=== PATIENT | female | born 1980 | race Caucasian/White ===

== ENCOUNTER → 2018-07-07 17:31 | Outpatient (CLI) | payer BC, SELFPAY | PROVIDERS: Visit Provider Obstetrics & Gynecology | DX: R39.89 Other symptoms and signs involving the genitourinary system (principal); Z20.2 Contact with and (suspected) exposure to infections with a predominantly sexual mode of transmission | CPT/HCPCS: 87086; 87088; 87186 ==

== ENCOUNTER 2018-10-29 09:56 | Emergency (ER) | payer BC, SELFPAY ==
--- NOTE | 2018-10-29 10:08 | HMH.EDUTC ---
[facility] [place] Dis[place] Clinical Impression: Strep throat Disposition: Home, Self-Care Condition on Discharge: Good Instructions: Strep Throat, DI for Strep Throat, Azithromycin Additional Instructions: Drink plenty of fluids. Take tylenol or ibuprofen for pain or fever Take all the antibiotics as prescribed. Throw your toothbrush away and get a new one. Follow up with your regular doctor. GO TO THE ER FOR ANY WORSENING OR LIFE THREATENING SYMPTOMS Prescriptions: Azithromycin [Z-Zac 250mg Tab] 250 mg PO UD DOSE PK #6 tab Referrals: Ariel Langston MD [Primary Care Provider] - Forms: Work/School Release Time of Disposition: 10:21 Medical Decision Making - Medical Records Medical records reviewed: Yes: I reviewed the patient's medical records. - [place] Inquiry Pt receiving controlled substance: No [place] was queried for this patient: No Vital Signs: 10/29/18 10:09 10/29/18 10:21 Temperature 98.4 F 98.4 F Temperature Source Oral Oral Pulse Rate 86 Pulse Rate [Right Brachial] 86 Respiratory Rate 18 18 Blood Pressure 137/80 Blood Pressure [Right Arm] 137/80 Blood Pressure Mean [Right Arm] 99 Blood Pressure Source Automatic Cuff Blood Pressure Source [Right Arm] Automatic Cuff Blood Pressure Position Sitting Blood Pressure Position [Right Arm] Sitting 02 Sat by Pulse Oximetry 96 Oxygen Delivery Method Room Air Room Air - Lab Data Lab results reviewed: Yes: I reviewed the patient's lab results. Lab Results 10/29/18 10:12: Strep Scn Rapid Clinic Positive A [facility] [place] HPI - General Stated complaint: sore throat and ears hurt Time Seen by Provider: 10/29/18 10:05 - History of Present Illness Provider Complaint: She c/o 3 days of worsening sore throat. - Related Data Previous Rx's Medication Instructions Recorded Azithromycin [Z-Zac 250mg Tab] 250 mg PO UD DOSE PK #6 tab 10/29/18 Allergies Allergy/AdvReac Type Severity Reaction Status Date / Time acetaminophen [From PERCOCET] Allergy Mild Verified 07/07/18 10:50 amoxicillin [AMOXICILLIN] Allergy Mild Verified 07/07/18 10:50 aspirin [ASPIRIN] Allergy Mild Verified 07/07/18 10:50 hydrocodone [HYDROCODONE] Allergy Mild Verified 07/07/18 10:50 latex [LATEX] Allergy Mild Verified 07/07/18 10:50 meperidine [From DEMEROL] Allergy Mild Verified 07/07/18 10:50 oxycodone [From PERCOCET] Allergy Mild Verified 07/07/18 10:50 promethazine [From PHENERGAN] Allergy Mild Verified 07/07/18 10:50 tramadol [From ULTRAM] Allergy Mild Verified 07/07/18 10:50 [facility] History - Hepatitis A Screen Attestation statement:: This patient has been screened for Hepatitis A risk factors. 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 Reports as per HPI Physical Exam - General General appearance: alert, in no apparent distress - Head Head exam: atraumatic, normocephalic, normal inspection - Eye Eye exam: Present: normal appearance, PERRL, EOMI - ENT ENT exam: Present: mucous membranes moist, normal external ear exam - Expanded ENT Exam Mouth exam: Present: normal external inspection Teeth exam: Present: normal inspection Throat exam: Present: tonsillar erythema, tonsillomegaly, tonsillar exudate - Neck Neck exam: Present: normal inspection, full ROM, trachea midline. Absent: meningismu
[2018-10-29 10:09] VITALS: BP 137/80; PULSE 86; RESP 18; TEMP 36.9; O2SAT 96; BMI 42.7
--- NOTE | 2018-10-29 10:12 | ED_ITS ---
[facility] [place] Clinical Impression: Strep throat Disposition: Home, Self-Care Condition on Discharge: Good Instructions: Strep Throat, DI for Strep Throat, Azithromycin Additional Instructions: Drink plenty of fluids. Take tylenol or ibuprofen for pain or fever Take all the antibiotics as prescribed. Throw your toothbrush away and get a new one. Follow up with your regular doctor. GO TO THE ER FOR ANY WORSENING OR LIFE THREATENING SYMPTOMS Prescriptions: Azithromycin [Z-Zac 250mg Tab] 250 mg PO UD DOSE PK #6 tab Referrals: Ariel Langston MD [Primary Care Provider] - Forms: Work/School Release Time of Disposition: 10:21 Medical Decision Making - Medical Records Medical records reviewed: Yes: I reviewed the patient's medical records. - [place] Inquiry Pt receiving controlled substance: No [place] was queried for this patient: No Vital Signs: 10/29/18 10:09 10/29/18 10:21 Temperature 98.4 F 98.4 F Temperature Source Oral Oral Pulse Rate 86 Pulse Rate [Right Brachial] 86 Respiratory Rate 18 18 Blood Pressure 137/80 Blood Pressure [Right Arm] 137/80 Blood Pressure Mean [Right Arm] 99 Blood Pressure Source Automatic Cuff Blood Pressure Source [Right Arm] Automatic Cuff Blood Pressure Position Sitting Blood Pressure Position [Right Arm] Sitting 02 Sat by Pulse Oximetry 96 Oxygen Delivery Method Room Air Room Air - Lab Data Lab results reviewed: Yes: I reviewed the patient's lab results. Lab Results 10/29/18 10:12: Strep Scn Rapid Clinic Positive A [facility] [place] HPI - General Stated complaint: sore throat and ears hurt Time Seen by Provider: 10/29/18 10:05 - History of Present Illness Provider Complaint: She c/o 3 days of worsening sore throat. - Related Data Previous Rx's Medication Instructions Recorded Azithromycin [Z-Zac 250mg Tab] 250 mg PO UD DOSE PK #6 tab 10/29/18 Allergies Allergy/AdvReac Type Severity Reaction Status Date / Time acetaminophen [From PERCOCET] Allergy Mild Verified 07/07/18 10:50 amoxicillin [AMOXICILLIN] Allergy Mild Verified 07/07/18 10:50 aspirin [ASPIRIN] Allergy Mild Verified 07/07/18 10:50 hydrocodone [HYDROCODONE] Allergy Mild Verified 07/07/18 10:50 latex [LATEX] Allergy Mild Verified 07/07/18 10:50 meperidine [From DEMEROL] Allergy Mild Verified 07/07/18 10:50 oxycodone [From PERCOCET] Allergy Mild Verified 07/07/18 10:50 promethazine [From PHENERGAN] Allergy Mild Verified 07/07/18 10:50 tramadol [From ULTRAM] Allergy Mild Verified 07/07/18 10:50 [facility] History - Hepatitis A Screen Attestation statement:: This patient has been screened for Hepatitis A risk factors. I have reviewed the patient's past medical history: Yes Medical History: Reports:: Diabetes Mellitus Type 2 Denies:: Cancer, Diabetes Mellitus Type 1, Hypertension, MRSA Comment: Gestational diabetes Other Surgeries: Yes: Tubal Ligation Amputation: No Fractures: No - Social History Smoking Status: Current every day smoker Tobacco Type: cigarettes #Yrs smoked (if former smoker): 22 Alcohol Intake: never Substance Use Type: denies use
[2018-10-29 10:15] LABS: UTC Strep Screen (Rapid) Positive (Negative)
[2018-10-29 10:21] VITALS: BP 137/80; PULSE 86; RESP 18; TEMP 36.9; O2SAT 96
== END 2018-10-29 10:25 | disposition home or self-care (01) ==
LOC: ER 10:00 → UTC 10:02
PROVIDERS: Emergency Provider Nurse Practitioner Family; PCP Internal Medicine Adolescent Medicine
DX: J02.0 Streptococcal pharyngitis (principal)
CPT/HCPCS: 87880; 99201

== ENCOUNTER 2019-11-29 20:20 | Emergency (ER) | payer BC, SELFPAY ==
[2019-11-29 20:43] VITALS: BP 147/88; PULSE 100; RESP 16; O2SAT 99; BMI 43.3
[2019-11-29 21:02] VITALS: BP 147/88; PULSE 100; RESP 16; TEMP 36.9; O2SAT 99; BMI 43.6
--- NOTE | 2019-11-29 21:07 | HMH.EDUTC ---
[facility] [place]ression: Cellulitis of trunk Qualifiers: Site of cellulitis of trunk: chest wall Qualified Code(s): L03.313 - Cellulitis of chest wall Disposition: Home, Self-Care Condition on Discharge: Good Instructions: Cellulitis Additional Instructions: Apply warm wet compresses to the affected sites three or four times per day for 15 minutes as tolerated. Take the antibiotics as directed. Follow up with your regular doctor. Don't shave your underarms until this is well healed. Wait at least 1 to 2 months. GO TO THE ER FOR ANY WORSENING SYMPTOMS OR CONCERNS Prescriptions: Sulfamethoxazole/Trimethoprim [Bactrim DS tablet] 1 each PO BID 10 Days #20 tab Transmission Status: Pending to [facility] Mupirocin [Bactroban 2% Ointment 22gm tube] 1 applicatio TP TID 7 Days #1 tube Transmission Status: Pending to [facility] cephALEXin [Keflex 500mg Cap] 500 mg PO Q6H 10 Days #40 cap Transmission Status: Pending to [facility] Referrals: Ariel Langston MD [Primary Care Provider] - Forms: Work/School Release Time of Disposition: 21:11 Medical Decision Making - Medical Records Medical records reviewed: No: I reviewed the patient's medical records. - [place] Inquiry Pt receiving controlled substance: No Vital Signs: 11/29/19 20:43 11/29/19 21:02 Temperature 98.4 F Temperature Source Oral Pulse Rate [Right Brachial] 100 H 100 H Respiratory Rate 16 16 Blood Pressure [Right Arm] 147/88 H 147/88 H Blood Pressure Mean [Right Arm] 107 107 Blood Pressure Source [Right Arm] Automatic Cuff Automatic Cuff Blood Pressure Position [Right Arm] Sitting Sitting 02 Sat by Pulse Oximetry 99 99 Oxygen Delivery Method Room Air Room Air [facility] [place] - General Stated complaint: sore under left arm Time Seen by Provider: 11/29/19 21:07 Mode of Arrival: Ambulatory Source of Information: Patient Limitations: No Limitations Description of Symptoms (Recalled from Triage Doc. by RN): Patient reports a red knot that popped up under her left armpit today. Patient reprots her bra has rubbed and iritated it more. Patient had it looked at work and was advised to come have it evaluated. HEENT Symptoms (Recalled from RN notes): No Resp Symptoms (Recalled from RN notes): No Skin Symptoms (Recalled from RN notes): Yes MS Symptoms (Recalled from RN notes): No Functional Status (Recalled from RN notes): WNL - History of Present Illness Provider Complaint: She states that she has a swollen area under her left arm. She gets boils pretty frequently. She states that she did have a staph infection in the past. She denies any fever or chills. - Related Data Previous Rx's Medication Instructions Recorded Cefdinir [Omnicef 300mg Capsule] 300 mg PO BID #20 cap 08/06/19 Mupirocin [Bactroban 2% Ointment 1 applicatio TP TID 7 Days #1 tube 11/29/19 22gm tube] Sulfamethoxazole/Trimethoprim 1 each PO BID 10 Days #20 tab 11/29/19 [Bactrim DS tablet] cephALEXin [Keflex 500mg Cap] 500 mg PO Q6H 10 Days #40 cap 11/29/19 Allergies Allergy/AdvReac Type Severity Reaction Status Date / Time acetaminophen [From PERCOCET] Allergy Mild Verified 07/07/18 10:50 amoxicillin [AMOXICILLIN] Allergy Mild Verified 07/07/18 10:50 aspirin [ASPIRIN] Allergy Mild Verified 07/07/18 10:50 hydrocodone [HYDROCODONE] Allergy Mild Verified 07/07/18 10:50 latex [LATEX] Allergy Mild Verified 07/07/18 10:50 meperidine [From DEMEROL] Allergy Mild Verified 07/07/18 10:50 oxycodone [From PERCOCET] Allergy Mild Verified 07/07/18 10:50 promethazine [From PHENERGAN] Allergy Mild Verified 07/07/18 10:50 tramadol [From ULTRAM] Allergy Mild Verified 07/07/18 10:50 - Worker's Comp Is this a Worker's Comp case?: No H History - Hepatitis A Screen Drug use history?: No High risk sexual behaviors?: No History of sexually transmitted infection?: No 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
[2019-11-29 21:29] VITALS: BP 147/88; PULSE 100; RESP 16; TEMP 36.9; O2SAT 99
== END 2019-11-29 21:35 | disposition home or self-care (01) ==
LOC: ER 20:42 → UTC 20:42
PROVIDERS: Emergency Provider Nurse Practitioner Family; PCP Internal Medicine Adolescent Medicine
DX: L03.313 Cellulitis of chest wall (principal); E11.9 Type 2 diabetes mellitus without complications; F17.210 Nicotine dependence, cigarettes, uncomplicated; Z88.1 Allergy status to other antibiotic agents; Z88.5 Allergy status to narcotic agent
CPT/HCPCS: 96372; 99201

== ENCOUNTER 2019-12-15 17:04 | Emergency (ER) | payer BC, SELFPAY ==
[2019-12-15 17:20] VITALS: BP 155/93; PULSE 111; RESP 22; TEMP 36.9; O2SAT 100; BMI 43.9
[2019-12-15 17:30] LABS: UTC Strep Screen (Rapid) Negative (Negative)
--- NOTE | 2019-12-15 17:31 | XR_ITS ---
PROCEDURE: XR CHEST 2V CLINICAL HISTORY: COUGH COMPARISON: CXR CHEST(2 VIEWS-NOT PORTABLE) from 12/23/2012 CXR CHEST(2 VIEWS-NOT PORTABLE) from 04/01/2013 FINDINGS: The cardiomediastinal silhouette and pulmonary vascularity are within normal limits. The lungs are clear without infiltrates, suspicious nodules, or pleural effusions. No acute bony abnormalities. IMPRESSION: No acute findings. Dictated by: Meño Khan MD 12/15/2019 18:04 Electronically signed by Meño Khan MD in [place] 12/15/2019 18:04
[2019-12-15 17:41] VITALS: BP 155/93; PULSE 111; RESP 22; TEMP 36.9; O2SAT 100; BMI 44.1
--- NOTE | 2019-12-15 17:55 | HMH.EDUTC ---
[facility] [place] Dis[place] Clinical Impression: COVID-19 virus test result unknown Otitis media Qualifiers: Otitis media type: unspecified Laterality: left Qualified Code(s): H66.92 - Otitis media, unspecified, left ear Disposition: Home, Self-Care Condition on Discharge: Good Instructions: Sore Throat, Middle Ear Infection, Preventing the Spread of Coronavirus Discharge Instructions Additional Instructions: *Monitor Temp, Over the counter Motrin or Tylenol as directed/as needed Tylenol every 4 hours and Motrin every 6 hours (as long as your family doctor has told you that you can take it) for fever or pain. and straight to ER if unable to lower temp less than 101.0 after medication given *Warm salt water gargles may help to soothe the throat *Throat Lozenges *Warm fluids like tea with honey may help to soothe the throat *Sleep elevated *Humidifier/Vaporizer Make sure to go home and self quarantine like you was advised in the [facility] no work until negative test *Follow instructions that you was given for quarantine on handout take medication as prescribed Call back to [facility] on Thursday evening to see if your results are back Return if needed Straight to ER if any life threatening symptoms Your throat swab was sent for culture. Those results are typically sent to your primary care. Be sure to follow up in 2-3 days with your family doctor/primary care physician if no improvement so they can review those result and treat if necessary. If you don?t have a primary care doctor, I recommend you get one but in the mean time, you will have to return to a walk in clinic Follow up IMMEDIATELY for new or worsening symptoms or no Noticeable improvement over the next 48-72 hours. 911 for difficulty breathing or swallowing Prescriptions: Fluticasone Propionate [Flonase 50mcg nasal spray 16gm] 1 - 2 spr NS DAILY #1 bottle Transmission Status: Received by [facility] Azithromycin [Z-Zac 250mg Tab] 250 mg PO DIRECTED #6 tab Transmission Status: Received by [facility] Referrals: Ariel Langston MD [Primary Care Provider] - As needed Forms: Work/School Release Time of Disposition: 18:14 Medical Decision Making - [place] Inquiry Pt receiving controlled substance: No [place] was queried for this patient: No Vital Signs: 12/15/19 17:20 06/18/20 17:41 Temperature 98.4 F 98.4 F Temperature Source Oral Oral Pulse Rate [Right Brachial] 111 H 111 H Respiratory Rate 22 22 Blood Pressure [Right Arm] 155/93 H 155/93 H Blood Pressure Mean [Right Arm] 113 113 Blood Pressure Source [Right Arm] Automatic Cuff Automatic Cuff Blood Pressure Position [Right Arm] Sitting Sitting 02 Sat by Pulse Oximetry 100 100 Oxygen Delivery Method Room Air Room Air - Lab Data Lab results reviewed: Yes: I reviewed the patient's lab results. Lab Results 12/15/19 17:19: Strep Scn Rapid Clinic Negative Orders (Tests/Meds): ORDERS Category Date Time Status SARS-CoV-2, CARLOS Stat Lab 12/15/19 18:13 Received Strep Screen Confirmation Stat Micro 12/15/19 17:19 Received - Radiology Data #1 Image(s): Chest Image Reviewed: Yes I reviewed the patient's radiology image Preliminary Findings: Normal/NAD [facility] [place] HPI - General Stated complaint: fever,SOB,Sore throat,Wants to be Tested for COVID Time Seen by Provider: 12/15/19 17:56 Mode of Arrival: Ambulatory Source of Information: Patient Limitations: No Limitations Description of Symptoms (Recalled from Triage Doc. by RN): PATIENT C/O SUDDEN ONSET OF SHORTNESS OF AIR, SORE THROAT, FEVER, DRY COUGH, AND LEFT EAR ACHE SINCE 0200 TODAY. 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
[2019-12-15 18:38] VITALS: BP 155/93; PULSE 111; RESP 22; TEMP 36.9; O2SAT 100
[2019-12-17 15:02] LABS: Covid-19 Nasal PCR Sendout Lex Not Detected
== END 2019-12-15 18:41 | disposition home or self-care (01) ==
PROVIDERS: Emergency Provider Nurse Practitioner; PCP Internal Medicine Adolescent Medicine
DX: Z20.828 Contact with and (suspected) exposure to other viral communicable diseases (principal); H66.92 Otitis media, unspecified, left ear; E11.9 Type 2 diabetes mellitus without complications; F17.210 Nicotine dependence, cigarettes, uncomplicated
CPT/HCPCS: 71046; 87880; 99202; U0004

== ENCOUNTER 2020-03-01 13:43 | Emergency (ER) | payer BC, SELFPAY ==
--- NOTE | 2020-03-01 15:09 | HMH.EDUTC ---
[facility] [place] Clinical Impression: Viral syndrome Disposition: Home, Self-Care Condition on Discharge: Good Instructions: DI for Viral Syndrome, Preventing the Spread of Coronavirus Discharge Instructions Additional Instructions: Drink plenty of fluids. Take tylenol or ibuprofen for pain or fever. Take the medications as directed. Follow up with your regular doctor. GO TO THE ER FOR ANY WORSENING SYMPTOMS FOLLOW THE DIRECTIONS ON THE COVID-19 HAND OUT THAT WE GAVE YOU REGARDING SELF-ISOLATION UNTIL YOU KNOW YOUR COVID-19 RESULTS Prescriptions: Azithromycin [Z-Zac 250mg Tab*] 250 mg PO UD DOSE PK #6 tab Transmission Status: Received by [facility] Referrals: Ariel Langston MD [Primary Care Provider] - Forms: Work/School Release Time of Disposition: 15:37 Medical Decision Making - Medical Records Medical records reviewed: No: I reviewed the patient's medical records. - [place] Inquiry Pt receiving controlled substance: No Vital Signs: 03/01/20 15:24 03/01/20 15:51 Temperature 98.8 F 98.8 F Temperature Source Oral Pulse Rate 83 Pulse Rate [Right Brachial] 83 Respiratory Rate 14 14 Blood Pressure 139/91 H Blood Pressure [Right Arm] 139/91 H Blood Pressure Mean [Right Arm] 107 Blood Pressure Source [Right Arm] Automatic Cuff Blood Pressure Position [Right Arm] Sitting 02 Sat by Pulse Oximetry 97 Oxygen Delivery Method Room Air Orders (Tests/Meds): ORDERS Category Date Time Status Covid-19 Nasal PCR Sendout Cesar Routine Lab 03/01/20 14:56 Received [facility] [place] - General Stated complaint: fever soa cough Time Seen by Provider: 03/01/20 15:09 - History of Present Illness Provider Complaint: She c/o feeling bad, having a dry cough, body aches and low grade fever for the past 2 days. - Related Data Previous Rx's Medication Instructions Recorded Cefdinir [Omnicef 300mg Capsule] 300 mg PO BID #20 cap 08/06/19 Mupirocin [Bactroban 2% Ointment 1 applicatio TP TID 7 Days #1 tube 11/29/19 22gm tube] Sulfamethoxazole/Trimethoprim 1 each PO BID 10 Days #20 tab 11/29/19 [Bactrim DS tablet] cephALEXin [Keflex 500mg Cap] 500 mg PO Q6H 10 Days #40 cap 11/29/19 Azithromycin [Z-Zac 250mg Tab] 250 mg PO DIRECTED #6 tab 12/15/19 Fluticasone Propionate [Flonase 1 - 2 spr NS DAILY #1 bottle 12/15/19 50mcg nasal spray 16gm] Azithromycin [Z-Zac 250mg Tab*] 250 mg PO UD DOSE PK #6 tab 03/01/20 Allergies Allergy/AdvReac Type Severity Reaction Status Date / Time acetaminophen [From PERCOCET] Allergy Mild Verified 07/07/18 10:50 amoxicillin [AMOXICILLIN] Allergy Mild Verified 07/07/18 10:50 aspirin [ASPIRIN] Allergy Mild Verified 07/07/18 10:50 hydrocodone [HYDROCODONE] Allergy Mild Verified 07/07/18 10:50 latex [LATEX] Allergy Mild Verified 07/07/18 10:50 meperidine [From DEMEROL] Allergy Mild Verified 07/07/18 10:50 oxycodone [From PERCOCET] Allergy Mild Verified 07/07/18 10:50 promethazine [From PHENERGAN] Allergy Mild Verified 07/07/18 10:50 tramadol [From ULTRAM] Allergy Mild Verified 07/07/18 10:50 [facility] History - Hepatitis A Screen Attestation statement:: This patient has been screened for Hepatitis A risk factors. 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
[2020-03-01 15:24] VITALS: BP 139/91; PULSE 83; RESP 14; TEMP 37.1; O2SAT 97; BMI 51.2
[2020-03-01 15:51] VITALS: BP 139/91; PULSE 83; RESP 14; TEMP 37.1; O2SAT 97
[2020-03-03 14:49] LABS: Covid-19 Nasal PCR Sendout Lex Not Detected
== END 2020-03-01 15:52 | disposition home or self-care (01) ==
PROVIDERS: Emergency Provider Nurse Practitioner Family; PCP Internal Medicine Adolescent Medicine
DX: B34.9 Viral infection, unspecified (principal); Z03.818 Encounter for observation for suspected exposure to other biological agents ruled out; E11.9 Type 2 diabetes mellitus without complications; F17.210 Nicotine dependence, cigarettes, uncomplicated; Z88.1 Allergy status to other antibiotic agents; Z88.5 Allergy status to narcotic agent; Z91.040 Latex allergy status; Z79.899 Other long term (current) drug therapy
CPT/HCPCS: 99201; U0004

== ENCOUNTER 2020-04-21 11:08 | Emergency (ER) | payer BC, SELFPAY ==
[2020-04-21 11:40] VITALS: BP 118/79; PULSE 94; RESP 16; TEMP 36.8; O2SAT 97; BMI 40.2
--- NOTE | 2020-04-21 11:51 | HMH.EDUTC ---
[facility] [place] Disposition Clinical Impression: Exposure to COVID-19 virus Disposition: Home, Self-Care Condition on Discharge: Good Instructions: Preventing the Spread of Coronavirus Discharge Instructions Additional Instructions: Drink plenty of fluids. Take tylenol for pain or fever. Follow up with your regular doctor. GO TO THE ER FOR ANY WORSENING SYMPTOMS FOLLOW THE DIRECTIONS ON THE COVID-19 HAND OUT THAT WE GAVE YOU REGARDING SELF-ISOLATION UNTIL YOU KNOW YOUR COVID-19 RESULTS Referrals: Ariel Langston MD [Primary Care Provider] - Forms: Work/School Release Time of Disposition: 11:53 Medical Decision Making - Medical Records Medical records reviewed: No: I reviewed the patient's medical records. - [place] Inquiry Pt receiving controlled substance: No Vital Signs: 04/21/20 11:40 04/21/20 11:58 Temperature 98.2 F 98.2 F Temperature Source Oral Pulse Rate 94 H Pulse Rate [Right Brachial] 94 H Respiratory Rate 16 16 Blood Pressure 118/79 Blood Pressure [Right Arm] 118/79 Blood Pressure Mean [Right Arm] 92 Blood Pressure Source [Right Arm] Automatic Cuff Blood Pressure Position [Right Arm] Sitting 02 Sat by Pulse Oximetry 97 Oxygen Delivery Method Room Air Orders (Tests/Meds): ORDERS Category Date Time Status Covid-19 Nasal PCR ([facility]) Routine Lab 04/21/20 11:35 Received [facility] [place] HPI - General Stated complaint: covid test Time Seen by Provider: 04/21/20 11:51 - History of Present Illness Provider Complaint: She states that she was exposed to covid while at her child's high school 2 days ago. She has a cough and runny nose, but she has a history of allergies. She denies any fever/chills/shortness of breath/chest pain/body aches. - Related Data Previous Rx's Medication Instructions Recorded Cefdinir [Omnicef 300mg Capsule] 300 mg PO BID #20 cap 08/06/19 Mupirocin [Bactroban 2% Ointment 1 applicatio TP TID 7 Days #1 tube 11/29/19 22gm tube] Sulfamethoxazole/Trimethoprim 1 each PO BID 10 Days #20 tab 11/29/19 [Bactrim DS tablet] cephALEXin [Keflex 500mg Cap] 500 mg PO Q6H 10 Days #40 cap 11/29/19 Azithromycin [Z-Zac 250mg Tab] 250 mg PO DIRECTED #6 tab 12/15/19 Fluticasone Propionate [Flonase 1 - 2 spr NS DAILY #1 bottle 12/15/19 50mcg nasal spray 16gm] Azithromycin [Z-Zac 250mg Tab*] 250 mg PO UD DOSE PK #6 tab 03/01/20 Allergies Allergy/AdvReac Type Severity Reaction Status Date / Time acetaminophen [From PERCOCET] Allergy Mild Verified 07/07/18 10:50 amoxicillin [AMOXICILLIN] Allergy Mild Verified 07/07/18 10:50 aspirin [ASPIRIN] Allergy Mild Verified 07/07/18 10:50 hydrocodone [HYDROCODONE] Allergy Mild Verified 07/07/18 10:50 latex [LATEX] Allergy Mild Verified 07/07/18 10:50 meperidine [From DEMEROL] Allergy Mild Verified 07/07/18 10:50 oxycodone [From PERCOCET] Allergy Mild Verified 07/07/18 10:50 promethazine [From PHENERGAN] Allergy Mild Verified 07/07/18 10:50 tramadol [From ULTRAM] Allergy Mild Verified 07/07/18 10:50 [facility] History - Hepatitis A Screen Attestation statement:: This patient has been screened for Hepatitis A risk factors. 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
[2020-04-21 11:58] VITALS: BP 118/79; PULSE 94; RESP 16; TEMP 36.8; O2SAT 97
[2020-04-21 17:37] LABS: Adenovirus,PCR Not Detected (NotDetected); Bordetella Pertussis Not Detected (NotDetected); Chlamydophila Pneumoniae, PCR Not Detected (NotDetected); Coronavirus 19, PCR Not Detected (NotDetected); Coronavirus 229E Not Detected (NotDetected); Coronavirus NL63 Not Detected (NotDetected); Coronavirus OC43 Not Detected (NotDetected); Coronovirus HKU1,PCR Not Detected (NotDetected); Human Metapneumovirus Not Detected (NotDetected); Influenza A, PCR Not Detected (NotDetected); Influenza AH1, 2009 Not Detected (NotDetected); Influenza AH1, PCR Not Detected (NotDetected); Influenza AH3,PCR Not Detected (NotDetected); Influenza B, PCR Not Detected (NotDetected); Mycoplasma Pneumoniae, PCR Not Detected (NotDetected); Parainfluenza 1, PCR Not Detected (NotDetected); Parainfluenza 2, PCR Not Detected (NotDetected); Parainfluenza 3, PCR Not Detected (NotDetected); Parainfluenza 4, PCR Not Detected (NotDetected); Respiratory Syncytial Virus Not Detected (NotDetected); Rhinovirus/Enterovirus Not Detected (NotDetected)
== END 2020-04-21 12:00 | disposition home or self-care (01) ==
PROVIDERS: Emergency Provider Nurse Practitioner Family; PCP Internal Medicine Adolescent Medicine
DX: Z20.828 Contact with and (suspected) exposure to other viral communicable diseases (principal); F17.210 Nicotine dependence, cigarettes, uncomplicated; Z91.040 Latex allergy status; Z88.1 Allergy status to other antibiotic agents; Z88.5 Allergy status to narcotic agent
CPT/HCPCS: 87581; 87633; 87798; 99201; U0003

== ENCOUNTER 2020-05-01 20:20 | Emergency (ER) | payer BC, SELFPAY ==
[2020-05-01 20:23] VITALS: BP 164/90; PULSE 111; RESP 18; TEMP 37.1; O2SAT 97; BMI 38.4
--- NOTE | 2020-05-01 20:35 | XR_ITS ---
PROCEDURE: XR CHEST 2V CLINICAL HISTORY: Chest Pain High blood pressure COMPARISON: CR CXR CHEST(2 VIEWS-NOT PORTABLE) from 12/23/2012 CR CXR CHEST(2 VIEWS-NOT PORTABLE) from 04/01/2013 CR XR CHEST 2V from 12/15/2019 FINDINGS: The cardiomediastinal silhouette and pulmonary vascularity are within normal limits. The lungs are clear without infiltrates, suspicious nodules, or pleural effusions. No acute bony abnormalities. IMPRESSION: No acute findings. Dictated by: Meño Khan MD 05/02/2020 04:58 Meño Khan MD in [place] 05/02/2020 04:58
--- NOTE | 2020-05-01 20:35 | ECG_ITS ---
APPROVED REPORT Exam: Resting ECG HR:117 bpm ECG Measurements Heart Rate 117 AXES AR 166 P 67 QRSd 84 QRS -17 QT 322 T 44 QTc 449 Conclusion Sinus tachycardia Otherwise normal ECG Electronically signed by : Ariel Langston, 05/02/2020 15:18:59
--- NOTE | 2020-05-01 20:54 | HMH.EDCP ---
ED Disposition Clinical Impression: Atypical chest pain Disposition: Home, Self-Care Condition on Discharge: Good Instructions: DI for Atypical Chest Pain Additional Instructions: please see pcp or card in am Referrals: Prosper Barajas MD [Primary Care Provider] - - Critical Care Critical Care Time: No Attestation: On 05/01/20, the high probability of a clinically significant, sudden or life threatening deterioration of the following system(s) required my full and direct attention, intervention and personal management. The time I documented below is in addition to time spent performing reported procedures but includes the following listed in this critical care notation. Medical Decision Making - Medical Records Medical records reviewed: Yes: I reviewed the patient's medical records. - [place] Inquiry Pt receiving controlled substance: No Vital Signs: 05/01/20 20:23 Temperature 98.8 F Temperature Source Oral Pulse Rate [Right] 111 H Respiratory Rate 18 Blood Pressure [Right Arm] 164/90 H Blood Pressure Mean [Right Arm] 114 Blood Pressure Source [Right Arm] Automatic Cuff Blood Pressure Position [Right Arm] Sitting 02 Sat by Pulse Oximetry 97 Oxygen Delivery Method Room Air - Lab Data Lab results reviewed: Yes: I reviewed the patient's lab results. Lab Results 05/01/20 20:40: WBC 13.2 H, RBC 4.90, Hgb 14.0, Hct 41.5, MCV 84.6, MCH 28.5, MCHC 33.7, RDW 18.4 H, Plt Count 408, MPV 21.3 H, Neut % (Auto) 60.2, Lymph % (Auto) 33.4, [place] % (Auto) 4.8, Eos % (Auto) 1.7, Baso % (Auto) 2.1 H, Neut # (Auto) 7.9 H, Lymph # (Auto) 4.4, [place] # (Auto) 0.6, Eos # (Auto) 0.2, Baso # (Auto) 0.3 H, ESR 24 H 05/01/20 20:40: Sodium 138, Potassium 3.7, Chloride 102, Carbon Dioxide 27, Anion Gap 12.7, BUN 11, Creatinine 0.70, Estimated Creat Clear 164, Estimated GFR 94, Est GFR ( Amer) 113, Glucose 171 H, Calcium 9.4, Total Bilirubin 0.2, Direct Bilirubin 0.0, Conjugated Bilirubin 0.0, Indirect Bilirubin 0.2, Unconjugated Bilirubin 0.2, AST 28, ALT 30, Alkaline Phosphatase 69, Troponin I < 0.01, C-Reactive Protein 15.9 H, Total Protein 7.4, Albumin 4.4 Result diagrams: 05/01/20 20:40 05/01/20 20:40 Orders (Tests/Meds): ED MEDICATIONS Generic Name Dose Route Start Last Admin Trade Name Freq PRN Reason Stop Dose Admin Sodium Chloride 1,000 mls @ 999 mls/hr 05/01/20 20:45 05/01/20 20:42 Sod Chlor 0.9% 1000ml Bag IV 05/01/20 21:45 999 mls/hr .Q1H1M ROBERTO Administration Discontinued Medications Generic Name Dose Route Start Last Admin Trade Name Freq PRN Reason Stop Dose Admin Nitroglycerin 0.4 mg 05/01/20 20:35 05/01/20 20:42 Nitroglycerin 0.4mg Sl Tablet SL 05/01/20 20:36 1 tab ONCE ONE Administration ORDERS Category Date Time Status XR chest 2V Stat Exams 05/01/20 20:35 Taken Covid-19 IgG/IgM ([facility]) Stat Lab 05/01/20 22:14 Ordered Troponin I Q3H Lab 05/01/20 23:45 Ordered Troponin I Q3H Lab 05/02/20 02:45 Ordered - Radiology Data #1 Image(s): Chest Image Reviewed: Yes I reviewed the patient's radiology image Preliminary Findings: Normal/NAD - ECG Data Tracing #1 Arrhythmias present: sinus tach Ischemic changes: non-specific ST-T wave changes - Reevaluation(s) Time: 22:23 Reevaluation #1: declined admit Chest Pain HPI - General Chief Complaint: Chest Pain Stated Complaint: chest pain Time Seen by Provider: 05/01/20 20:35 Mode of Arrival: Ambulatory Source of Information: Patient, Medical Record Limitations: No Limitations Description of Symptoms (Recalled from ER Triage Doc. by RN): Pt states she has left chest pain and feels like she has been having some arrythmias - History of Present Illness HPI narrative: feeling faint with chest pain with increased hr- no syncope MD complaint: chest pain indicative of cardiac Onset (ago): hour(s) Duration: intermittent Activity at onset: during rest Pain location: left chest Severity: moder
[2020-05-01 20:56] LABS: Chloride 102 mmol/L (98-107); Potassium 3.7 mmoL/L (3.5-5.1); Sodium 138 mmol/L (136-145)
[2020-05-01 20:59] LABS: Alanine Aminotransferase 30 U/L (12-78); Albumin Level 4.4 g/dl (3.5-5.0); Alkaline Phosphatase 69 U/L (38-126); Anion Gap 12.7 mEq/L (5-15); Aspartate Amino Transferase 28 U/L (14-36); Bilirubin,Indirect 0.2 mg/dL (0.0-0.9); Bilirubin,Total 0.2 mg/dl (0.2-1.3); Bilirubin,Unconjugated 0.2 mg/dL (0.0-1.1); Blood Urea Nitrogen 11 mg/dl (7-17); Calcium 9.4 mg/dl (8.4-10.2); Carbon Dioxide 27 mmol/L (22.0-30.0); Creatinine Clearance Estimated 164 mL/min (50-200); Estimated Glomerular Filt Rate 94 ml/min (>60); GFR (African American) 113 ML/MIN (>60); Glucose 171 mg/dl (74-100); Total Protein,Serum 7.4 g/dl (6.3-8.2)
[2020-05-01 21:05] LABS: C-Reactive Protein 15.9 mg/L (0-4)
[2020-05-01 21:07] LABS: Basophils # 0.3 K/mm3 (0-0.2); Basophils % 2.1 % (0.1-2.0); Eosinophils # 0.2 K/mm3 (0.0-0.4); Eosinophils % 1.7 % (0.1-12.0); Hematocrit 41.5 % (37.0-47.0); Lymphocytes # 4.4 K/mm3 (0.7-4.5); Lymphocytes % 33.4 % (10-50); Mean Corpuscular HGB Conc 33.7 g/dL (31.8-35.4); Mean Corpuscular Hemoglobin 28.5 pg (27.0-31.2); Mean Corpuscular Volume 84.6 fl (81-99); Mean Platelet Volume 21.3 fl (7.4-10.4); Monocytes # 0.6 K/mm3 (0.1-1.0); Monocytes % 4.8 % (1.7-9.3); Neutrophils # 7.9 K/mm3 (1.8-7.8); Neutrophils % 60.2 % (37.0-80.0); Platelet Count 408 K/mm3 (142-424); Red Cell Distribution Width 18.4 % (11.5-17.5); White Blood Count 13.2 K/mm3 (4.8-10.8)
[2020-05-01 21:21] LABS: Troponin I < 0.01 ng/ml (0.00-0.034)
[2020-05-01 21:43] LABS: Erythrocyte Sedimentation Rate 24 mm/hr (0-20)
--- NOTE | 2020-05-01 22:22 | PC.NURSE ---
asked pt is she wanted to stay for observation. pt stated she didnt want to stay for admission because she had two young kids at home but she agreed to follow up with her PCP
[2020-05-01 22:37] VITALS: BP 129/77; PULSE 87; RESP 18; O2SAT 98
[2020-05-01 22:42] LABS: Coronavirus 19 IgG Antibody Negative (Negative); Coronavirus 19 IgM Antibody Negative (Negative)
[2020-05-01 22:51] VITALS: BP 129/77; PULSE 86; RESP 14; TEMP 37.1; O2SAT 98
[2020-05-01 23:10] LABS: T4 (Thyroxine) 9.1 ug/dl (5.53-11.0)
[2020-05-01 23:24] LABS: Thyroid Stimulating Hormone 0.66 uIU/mL (0.465-4.68)
[2020-05-03 13:52] LABS: Hemoglobin A1C 6.8 % (4.0-6.0)
== END 2020-05-01 22:54 | disposition home or self-care (01) ==
PROVIDERS: Emergency Provider Emergency Medicine; PCP Internal Medicine Adolescent Medicine
DX: R07.89 Other chest pain (principal); E11.9 Type 2 diabetes mellitus without complications; Z01.84 Encounter for antibody response examination; F17.210 Nicotine dependence, cigarettes, uncomplicated; Z88.5 Allergy status to narcotic agent
CPT/HCPCS: 71046; 80048; 80076; 83036; 84436; 84443; 84484; 85025; 85651; 86140; 86328; 93005; 96365; 99283

== ENCOUNTER → 2020-05-04 13:30 | Outpatient (CLI) | payer BC, SELFPAY ==
--- NOTE | 2020-05-04 | CA_ITS ---
APPROVED REPORT EXAM: Comprehensive 2D, Doppler, and color-flow Echocardiogram Professor Of Family Medicine: Carole Aldridge RT(R) Ht: 5 ft 2 in Wt: 230lbs BSA: 2.03 BP: 174/115 mmHg Indications: CP, Murmur, smoker, palpitations, fatigue, syncope, edema, DM, SOB, obesity, family history of HD, emphysema, SVT 2D Dimensions LVOT 2.00 cm (M/F) 1.5-2.5 M-Mode Dimensions RVDd 1.83 cm (0.9-2.6) LA Diam 3.09 cm (1.9-4.0) LVDd 4.61 cm (3.5-5.7) Ao Diam 2.67 cm (2.0-3.7) LVDs 3.51 cm (3.5-5.7) IVSd 1.26 cm (0.6-1.1) PWd 0.99 cm (0.6-1.1) EF (Teich) 47.60% FS 23.90% EDV (Teich) 97.80 mL ESV (Teich) 51.20 mL LV Diastology E Decel Time 150.00 (160-240 msec) E/A Ratio 1.3 MED E' 9.40 (< 7 cm/sec) E'/MED E' Ratio 11.94 (>14) LAT E' 12.10 (<10 cm/sec) E/LAT E' Ratio 9.27 (>14) Mitral Valve MV E Max Grey. 112.00 (40-130 cm/s) MV A Velocity 84.00 (40-130 cm/s) E/A Ratio 1.33 MV Decel. Time 150.00 (160-240 ms) MV PHT 44.00 ms Left Ventricle Left atrium is normal size, left ventricle is normal size, there is no concentric left ventricular hypertrophy, visually estimated ejection fraction 55% with no regional wall motion abnormality, diastolic parameters are within normal range. Right Ventricle Right atrium and right ventricle are normal size and contractility. Aortic Valve Aortic valve is grossly normal, there is no aortic stenosis or aortic insufficiency. Mitral Valve Mitral valve is grossly normal, there is mild mitral regurgitation. Tricuspid Valve Tricuspid valve is grossly normal, there is mild tricuspid regurgitation, tricuspid regurgitation jet velocity is inadequate for calculation of the right ventricular systolic pressure. Pulmonic Valve Pulmonic valve is poorly visualized. Great Vessels Aortic root is normal size. Pericardium No significant pericardial effusion noted. Conclusion 1. Normal left ventricular size, preserved left ventricular systolic function, visually estimated ejection fraction 55% with no regional wall motion abnormality, diastolic parameters are within normal range. 2. Mild mitral and tricuspid regurgitation. 3. No significant pericardial effusion noted. Electronically signed by : Delmar Galloway, 05/08/2020 05:00:07
== END ==
PROVIDERS: PCP Internal Medicine Adolescent Medicine; Visit Provider Internal Medicine Adolescent Medicine
DX: R07.9 Chest pain, unspecified (principal)
CPT/HCPCS: 93306

== ENCOUNTER 2020-08-17 11:45 | Emergency (ER) | payer BC, SELFPAY ==
[2020-08-17 11:45] VITALS: BP 158/115; PULSE 120; RESP 19; TEMP 36.8; O2SAT 98; BMI 42.0
--- NOTE | 2020-08-17 12:05 | PC.NURSE ---
PATIENT REQUESTING TO SPEAK TO SHIFT ENGINEER FOR A COMPLAINT. SHE STATES SHE OVERHEARD STAFF TALKING ABOUT HER WHILE WAITING TO BE TESTED. [place] NOTIFIED.
--- NOTE | 2020-08-17 12:10 | PC.NURSE ---
WHOLESALE ACCOUNT MANAGER Cuco PHIPPS RN AT [facility]
--- NOTE | 2020-08-17 12:12 | PC.NURSE ---
PER ASSOCIATE PROFESSOR OF FORESTRY PATIENT IS REQUESTING STAFF IN QUESTION TO NOT GO INTO HER ROOM. PATIENT WILL BE LEAVING WITHOUT BEING SEEN BY PROVIDER.
[2020-08-17 12:18] VITALS: BP 158/115; PULSE 120; RESP 19; TEMP 36.8; O2SAT 98
--- NOTE | 2020-08-17 12:21 | HMH.EDUTC ---
[facility] [place] Clinical Impression: Patient left after triage Disposition: Left Without Being Seen Condition on Discharge: Undetermined Referrals: Ariel Langston MD [Primary Care Provider] - Time of Disposition: 20:14 Medical Decision Making - [place] Inquiry Pt receiving controlled substance: No Vital Signs: 08/17/20 11:45 08/17/20 12:18 Temperature 98.2 F 98.2 F Temperature Source Oral Pulse Rate 120 H Pulse Rate [Right Brachial] 120 H Respiratory Rate 19 19 Blood Pressure 158/115 H Blood Pressure [Right Arm] 158/115 H Blood Pressure Mean [Right Arm] 129 Blood Pressure Source [Right Arm] Automatic Cuff Blood Pressure Position [Right Arm] Sitting 02 Sat by Pulse Oximetry 98 Oxygen Delivery Method Room Air - Lab Data Lab results reviewed: Yes: I reviewed the patient's lab results. Lab Results 08/17/20 11:57: Influenza Type A Ag Negative, Influenza Type B Ag Negative 08/17/20 11:57: Strep Scn Rapid Clinic Negative [facility] [place] - General Stated complaint: fever, soa, loss of taste and smel Time Seen by Provider: 08/17/20 12:21 Mode of Arrival: Ambulatory Source of Information: Patient Limitations: No Limitations Description of Symptoms (Recalled from Triage Doc. by RN): PATIENT C/O BODY ACHES, SOA, FEVER, AND NO TASTE/SMELL SINCE LAST NIGHT. STATES SHE HAS RECENTLY BEEN EXPOSED TO STREP HEENT Symptoms (Recalled from RN notes): Yes Resp Symptoms (Recalled from RN notes): Yes Skin Symptoms (Recalled from RN notes): No MS Symptoms (Recalled from RN notes): No Functional Status (Recalled from RN notes): WNL - History of Present Illness Provider Complaint: Patient left without being seen - Related Data Home Medications Medication Instructions Recorded Confirmed metoprolol tartrate 25 mg tablet 25 mg PO DAILY 05/07/20 Allergies Allergy/AdvReac Type Severity Reaction Status Date / Time acetaminophen [From PERCOCET] Allergy Mild Verified 05/07/20 09:07 amoxicillin [AMOXICILLIN] Allergy Mild Verified 05/07/20 09:07 aspirin [ASPIRIN] Allergy Mild Verified 05/07/20 09:07 hydrocodone [HYDROCODONE] Allergy Mild Verified 05/07/20 09:07 latex [LATEX] Allergy Mild Verified 05/07/20 09:07 meperidine [From DEMEROL] Allergy Mild Verified 05/07/20 09:07 oxycodone [From PERCOCET] Allergy Mild Verified 05/07/20 09:07 promethazine [From PHENERGAN] Allergy Mild Verified 05/07/20 09:07 tramadol [From ULTRAM] Allergy Mild Verified 05/07/20 09:07 - Worker's Comp Is this a Worker's Comp case?: No [facility] History - Hepatitis A Screen Drug use history?: No High risk sexual behaviors?: No History of sexually transmitted infection?: No 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er?: No Do you have indoor plumbing?: Yes Do you have electricity?: Yes Attestation statement:: This patient has been screened for Hepatitis A risk factors. I have reviewed the patient's past medical history: Yes Medical History: Reports:: Diabetes Mellitus Type 2 Denies:: Cancer, Diabetes Mellitus Type 1, Hypertension, Internal Pacemaker, MRSA Comment: Gestational diabetes Other Surgeries: Yes: Tubal Ligation. 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
[2020-08-17 20:04] LABS: UTC Strep Screen (Rapid) Negative (Negative)
[2020-08-17 20:05] LABS: UTC Influenza A Antigen Negative (Negative); UTC Influenza B Antigen Negative (Negative)
== END 2020-08-17 12:22 | disposition left against medical advice (07) ==
PROVIDERS: Emergency Provider Physician Assistant; PCP Internal Medicine Adolescent Medicine
DX: Z53.21 Procedure and treatment not carried out due to patient leaving prior to being seen by health care provider (principal); Z20.822 Contact with and (suspected) exposure to COVID-19
CPT/HCPCS: 87804; 87880; U0003

== ENCOUNTER 2020-12-03 18:03 | Emergency (ER) | payer SELFPAY ==
[2020-12-03 18:22] VITALS: BP 137/77; PULSE 86; RESP 19; TEMP 37; O2SAT 99; BMI 45.7
[2020-12-03 18:30] VITALS: BP 137/77; PULSE 86; RESP 19; TEMP 37
--- NOTE | 2020-12-03 18:53 | HMH.EDUTC ---
[facility] – [place] Disposition Clinical Impression: Exposure to COVID-19 virus Disposition: Home, Self-Care Condition on Discharge: Good Instructions: DI for COVID-19 (Suspected or Confirmed ), Coronavirus Disease 2019, Preventing the Spread of Coronavirus Discharge Instructions Additional Instructions: *Monitor Temp, Over the counter Motrin or Tylenol as directed/as needed Tylenol every 4 hours and Motrin every 6 hours (as long as your family doctor has told you that you can take it) for fever or pain. and straight to ER if unable to lower temp less than 101.0 after medication given Follow up IMMEDIATELY for new or worsening symptoms or no Noticeable improvement over the next 48-72 hours. 911 for difficulty breathing or swallowing You were tested for today for COVID19 your test result should be back in the next 24-48 hours, you may call to the [facility] to see if your test results are back in the next 48 hours [phone] [facility] hours are 9am-9pm You was given a handout with instructions for Self Quarantine and Self isolation for while you wait on test results and what to do if they are positive If you are positive the Health Dept will be contacting you also Referrals: Ariel Langston MD [Primary Care Provider] - As needed Time of Disposition: 18:58 Medical Decision Making - [place] Inquiry Pt receiving controlled substance: No [place] was queried for this patient: No Vital Signs: 12/03/20 18:22 12/03/20 18:30 Temperature 98.6 F 98.6 F Temperature Source Oral Pulse Rate 86 Pulse Rate [Right] 86 Respiratory Rate 19 19 Blood Pressure 137/77 Blood Pressure [Right Arm] 137/77 Blood Pressure Mean [Right Arm] 97 02 Sat by Pulse Oximetry 99 Orders (Tests/Meds): ORDERS Category Date Time Status Covid-19 Nasal PCR ([facility]) Routine Lab 12/03/20 18:12 Received [facility] [place] HPI - General Stated complaint: covid test Time Seen by Provider: 12/03/20 18:53 Mode of Arrival: Ambulatory Source of Information: Patient Limitations: No Limitations Description of Symptoms (Recalled from Triage Doc. by RN): pt needs covid test. she was exposed to covid today. HEENT Symptoms (Recalled from RN notes): No Resp Symptoms (Recalled from RN notes): No Skin Symptoms (Recalled from RN notes): No MS Symptoms (Recalled from RN notes): No Functional Status (Recalled from RN notes): na - History of Present Illness Provider Complaint: Patient states that she was exposed to COVID and today at work and her job told her to come and get tested for COVID denies any symptoms - Related Data Home Medications Medication Instructions Recorded Confirmed metoprolol tartrate 25 mg tablet 25 mg PO DAILY 05/07/20 Allergies Allergy/AdvReac Type Severity Reaction Status Date / Time acetaminophen [From PERCOCET] Allergy Mild Verified 12/03/20 18:25 amoxicillin [AMOXICILLIN] Allergy Mild Verified 12/03/20 18:25 aspirin [ASPIRIN] Allergy Mild Verified 12/03/20 18:25 hydrocodone [HYDROCODONE] Allergy Mild Verified 12/03/20 18:25 latex [LATEX] Allergy Mild Verified 12/03/20 18:25 meperidine [From DEMEROL] Allergy Mild Verified 12/03/20 18:25 oxycodone [From PERCOCET] Allergy Mild Verified 12/03/20 18:25 promethazine [From PHENERGAN] Allergy Mild Verified 12/03/20 18:25 tramadol [From ULTRAM] Allergy Mild Verified 12/03/20 18:25 - Worker's Comp Is this a Worker's Comp case?: No [facility] History - Hepatitis A Screen Drug use history?: No High risk sexual behaviors?: No History of sexually transmitted infection?: No 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er?: No Do you have indoor plumbing?: Yes Do you have electricity?: Yes Attestation statement:: This patient has been screened for Hepatitis A risk factors. I have reviewed the patient's past medical history: Yes Medical History: Reports:: Diabetes Mellitus Type 2 Denies:: Cancer, Diabetes Mellitus Type 1, Hypertension, Internal Pacemaker, MRSA Comment: Gestational diabetes Other Surger
== END 2020-12-03 19:02 | disposition home or self-care (01) ==
PROVIDERS: Emergency Provider Nurse Practitioner; PCP Internal Medicine Adolescent Medicine
DX: Z20.822 Contact with and (suspected) exposure to COVID-19 (principal); F17.210 Nicotine dependence, cigarettes, uncomplicated; Z91.040 Latex allergy status; Z88.1 Allergy status to other antibiotic agents; Z88.5 Allergy status to narcotic agent
CPT/HCPCS: 99202; G0463; U0003

== ENCOUNTER → 2021-03-21 13:08 | Outpatient (CLI) | payer OTHER, SELFPAY ==
[2021-03-21 13:31] LABS: Basophils # 0.2 K/mm3 (0-0.2); Basophils % 1.6 % (0.1-2.0); Eosinophils # 0.2 K/mm3 (0.0-0.4); Eosinophils % 1.7 % (0.1-12.0); Hematocrit 44.2 % (37.0-47.0); Hemoglobin 14.2 g/dL (12.2-16.2); Lymphocytes # 3.1 K/mm3 (0.7-4.5); Lymphocytes % 30.8 % (10-50); Mean Corpuscular HGB Conc 32.2 g/dL (31.8-35.4); Mean Corpuscular Hemoglobin 28.8 pg (27.0-31.2); Mean Corpuscular Volume 89.4 fl (81-99); Monocytes # 0.6 K/mm3 (0.1-1.0); Monocytes % 5.5 % (1.7-9.3); Neutrophils # 6.1 K/mm3 (1.8-7.8); Neutrophils % 60.3 % (37.0-80.0); Platelet Count 571 K/mm3 (142-424); Red Blood Count 4.95 M/mm3 (4.20-5.40); Red Cell Distribution Width 13.9 % (11.5-17.5); White Blood Count 10.1 K/mm3 (4.8-10.8)
[2021-03-21 13:52] LABS: Hemoglobin A1C 7.5 % (4.0-6.0)
[2021-03-21 14:21] LABS: Chloride 101 mmol/L (98-107); Potassium 4.8 mmoL/L (3.5-5.1); Sodium 140 mmol/L (136-145)
[2021-03-21 14:24] LABS: Alanine Aminotransferase 31 U/L (12-78); Albumin Level 4.4 g/dl (3.5-5.0); Albumin/Globulin Ratio 1.6 (1.1-1.8); Alkaline Phosphatase 80 U/L (38-126); Anion Gap 15.8 mEq/L (5-15); Aspartate Amino Transferase 29 U/L (14-36); Bilirubin,Total 0.2 mg/dl (0.2-1.3); Blood Urea Nitrogen 13 mg/dl (7-17); Carbon Dioxide 28 mmol/L (22.0-30.0); Cholesterol 174 mg/dl (140-200); Estimated Glomerular Filt Rate 93 ml/min (>60); GFR (African American) 113 ML/MIN (>60); Globulin 2.8 g/dL (1.3-3.2); Total Protein,Serum 7.2 g/dl (6.3-8.2); Triglycerides 357 mg/dl (30-150); VLDL Cholesterol 71 mg/dL (0-40)
[2021-03-21 14:25] LABS: Calcium 9.7 mg/dl (8.4-10.2); Chol/HDL Ratio 4.8 (1-3.5); Glucose 150 mg/dl (74-100); HDL Cholesterol 36 mg/dl (40-60)
[2021-03-21 14:35] LABS: Direct LDL Cholesterol 98.45 mg/dL (100-129)
[2021-03-21 14:44] LABS: HCG Qualitative, Serum Negative (Negative)
[2021-03-21 18:10] LABS: Glucose,Random 146 mg/dL (74-100)
[2021-03-23 09:19] LABS: Testosterone,Total 41 ng/dL (8-60)
== END ==
PROVIDERS: Visit Provider Internal Medicine Adolescent Medicine
DX: E11.9 Type 2 diabetes mellitus without complications (principal); N91.2 Amenorrhea, unspecified; Z84.2 Family history of other diseases of the genitourinary system
CPT/HCPCS: 36415; 80053; 80061; 82947; 83036; 84403; 84703; 85025; 87086

== ENCOUNTER → 2021-03-26 10:39 | Outpatient (CLI) | payer OTHER, SELFPAY ==
--- NOTE | 2021-03-26 10:41 | US_ITS ---
PROCEDURE: US TRANSVAGINAL CLINICAL INDICATION: AMENORRHEA COMPARISON: No exams were available for comparison FINDINGS: UTERUS: 8cm x 5cmx 4cm with a combined endometrial thickness of 8.6mm LEFT OVARY: [id number] with a volume of 8.8ml. There is a small left ovarian cyst at 18 mm with some low level internal echoes possibly due to a hemorrhagic cyst. RIGHT OVARY: [id number] with a volume of 17.5ml. 3 x 2 cm simple appearing left ovarian cyst. No cul-de-sac fluid IMPRESSION: Bilateral ovarian cyst 18 mm on the left which may represent a small hemorrhagic cyst and simple appearing right ovarian cyst at 3 cm. Dictated by: Meño Khan MD 03/26/2021 16:11 Meño Khan MD in OV 03/26/2021 16:11
== END ==
PROVIDERS: PCP Internal Medicine Adolescent Medicine; Visit Provider Internal Medicine Adolescent Medicine
DX: N91.2 Amenorrhea, unspecified (principal)
CPT/HCPCS: 76830

== ENCOUNTER → 2021-03-29 07:18 | Outpatient (CLI) | payer OTHER, SELFPAY ==
[2021-03-29 09:26] LABS: Free Thyroxine Index 2.7 ug/dL (5.93-13.13); T4 (Thyroxine) 8.7 ug/dl (5.53-11.0); Triiodothryronine (T3) Uptake 31 % (23.5-40.5)
[2021-03-29 09:40] LABS: Thyroid Stimulating Hormone 1.14 uIU/mL (0.465-4.68)
[2021-03-29 15:34] LABS: Chloride 101 mmol/L (98-107); Potassium 4.5 mmoL/L (3.5-5.1); Sodium 137 mmol/L (136-145)
[2021-03-29 15:37] LABS: Alanine Aminotransferase 27 U/L (12-78); Albumin Level 3.9 g/dl (3.5-5.0); Albumin/Globulin Ratio 1.4 (1.1-1.8); Alkaline Phosphatase 78 U/L (38-126); Anion Gap 12.5 mEq/L (5-15); Aspartate Amino Transferase 25 U/L (14-36); Bilirubin,Total 0.2 mg/dl (0.2-1.3); Blood Urea Nitrogen 8 mg/dl (7-17); Carbon Dioxide 28 mmol/L (22.0-30.0); Estimated Glomerular Filt Rate 137 ml/min (>60); GFR (African American) 166 ML/MIN (>60); Globulin 2.7 g/dL (1.3-3.2); Total Protein,Serum 6.6 g/dl (6.3-8.2)
[2021-03-29 15:38] LABS: Calcium 9.1 mg/dl (8.4-10.2); Glucose 185 mg/dl (74-100)
[2021-03-30 12:09] LABS: C-Peptide 5.8 ng/mL (1.1-4.4); Insulin Level Total 34.8 uIU/mL (2.6-24.9)
== END ==
PROVIDERS: Visit Provider Internal Medicine Adolescent Medicine
DX: R51.9 Headache, unspecified (principal); E16.2 Hypoglycemia, unspecified
CPT/HCPCS: 36415; 80053; 82533; 83525; 84436; 84443; 84479; 84681

== ENCOUNTER 2021-06-22 20:59 | Emergency (ER) | payer OTHER, SELFPAY ==
--- NOTE | 2021-06-22 23:00 | PC.NURSE ---
Called hotel front office manager to bring pt back to room 8, pt is waiting in car
[2021-06-22 23:45] VITALS: BP 00/00; PULSE 0; RESP 0; TEMP -17.7; TEMP 0
== END 2021-06-23 | disposition left against medical advice (07) ==
LOC: ER 23:51
PROVIDERS: Emergency Provider Emergency Medicine; PCP Internal Medicine Adolescent Medicine
DX: Z53.21 Procedure and treatment not carried out due to patient leaving prior to being seen by health care provider (principal)

== ENCOUNTER 2021-12-03 15:43 | Emergency (ER) | payer OTHER, SELFPAY ==
--- NOTE | 2021-12-03 15:43 | ECG_ITS ---
APPROVED REPORT Exam: Resting ECG HR:85 bpm ECG Measurements Heart Rate 85 AXES AR 162 P 53 QRSd 86 QRS -4 QT 359 T 0 QTc 401 Conclusion SINUS RHYTHM POSSIBLE RIGHT VENTRICULAR CONDUCTION DELAY [RSR (QR) IN V1/V2] MINIMAL ST DEPRESSION [0.025+ mV ST DEPRESSION] BORDERLINE ECG UNCONFIRMED REPORT Electronically signed by : Ariel Langston MD 12/03/2021 18:39:19
[2021-12-03 15:46] VITALS: BP 170/84; PULSE 85; RESP 16; TEMP 37; O2SAT 96; BMI 40.2
--- NOTE | 2021-12-03 15:53 | XR_ITS ---
FINAL REPORT CLINICAL HISTORY: cp COMPARISON: 05/01/2020 FINDINGS: SINGLE-VIEW CHEST The heart size is normal. The mediastinum is normal. The lungs are clear. There is no pneumothorax. IMPRESSION: No acute cardiopulmonary process. Reviewed, Interpreted and Dictated by Ish Damon III, MD Transcribed by Anel Nunez Authenticated and [facility]
--- NOTE | 2021-12-03 15:53 | HMH.EDCP ---
ED Disposition Clinical Impression: Nonspecific chest pain, Vertigo Disposition: Home, Self-Care Condition on Discharge: Good Instructions: DI for Atypical Chest Pain Additional Instructions: follow up cardiology, return for worse Prescriptions: Nitroglycerin [Nitrostat 0.4mg SL Tablet] 0.4 mg SL Q5MINP PRN #10 tab PRN Reason: Chest Pain Transmission Status: Pending to [id number] Referrals: Mohit Arrington MD [Staff Physician] - - Critical Care Critical Care Time: No Attestation: On , the high probability of a clinically significant, sudden or life threatening deterioration of the following system(s) required my full and direct attention, intervention and personal management. The time I documented below is in addition to time spent performing reported procedures but includes the following listed in this critical care notation. Medical Decision Making - Medical Records Medical records reviewed: Yes: I reviewed the patient's medical records. - [place] Inquiry Pt receiving controlled substance: No Vital Signs: 12/03/21 15:46 Temperature 98.6 F Temperature Source Oral Pulse Rate [Apical] 85 Respiratory Rate 16 Blood Pressure [Left Arm] 170/84 H Blood Pressure Mean [Left Arm] 112 Blood Pressure Source [Left Arm] Automatic Cuff Blood Pressure Position [Left Arm] Sitting 02 Sat by Pulse Oximetry 96 Oxygen Delivery Method Room Air - Lab Data Lab Results 12/03/21 15:55: WBC 9.9, RBC 4.51, Hgb 13.1, Hct 39.1, MCV 86.7, MCH 29.1, MCHC 33.6, RDW 14.1, Plt Count 497 H, MPV 7.4, Neut % (Auto) 60.3, Lymph % (Auto) 31.0, [place] % (Auto) 5.8, Eos % (Auto) 1.7, Baso % (Auto) 1.1, Neut # (Auto) 6.0, Lymph # (Auto) 3.1, [place] # (Auto) 0.6, Eos # (Auto) 0.2, Baso # (Auto) 0.1 12/03/21 15:55: Troponin I < 0.01 12/03/21 15:55: Sodium 137, Potassium 3.9, Chloride 102, Carbon Dioxide 29, Anion Gap 9.9, BUN 10, Creatinine 0.60, Estimated Creat Clear 198, Estimated GFR 111, Est GFR ( Amer) 135, Glucose 144 H, Calcium 9.2, Total Bilirubin 0.3, Direct Bilirubin 0.1, Conjugated Bilirubin 0.0, Indirect Bilirubin 0.2, Unconjugated Bilirubin 0.2, AST 30, ALT 27, Alkaline Phosphatase 66, Total Protein 7.0, Albumin 4.1 Result diagrams: 12/03/21 15:55 12/03/21 15:55 Orders (Tests/Meds): ED MEDICATIONS Discontinued Medications Generic Name Dose Route Start Last Admin Trade Name All PRN Reason Stop Dose Admin Aspirin 324 mg 12/03/21 15:55 12/03/21 15:58 Aspirin 81mg Chewable Tablet PO 12/03/21 15:56 324 mg ONCE ONE Administration Belladonna Alkaloids 60 ml 12/03/21 15:52 12/03/21 15:57 Gi Cocktail 60ml Udc PO 12/03/21 15:53 60 ml ONCE ONE Administration Meclizine HCl 50 mg 12/03/21 16:19 12/03/21 17:12 Meclizine 25mg Tablet PO 12/03/21 16:20 Not Given ONCE ONE ORDERS Category Date Time Status Troponin I Q3H Lab 12/03/21 19:00 Ordered Troponin I Q3H Lab 12/03/21 22:00 Ordered - ECG Data Tracing #1 I reviewed this ECG and interpreted as documented below: ekg by me nsr, poss rbbb, non spec st changes - Reevaluation(s) Time: 16:19 (cp resolved with gi cocktail, now with vertigo symptoms) Time reevaluation 3: 17:12 (reeval, symptoms resolved, asking to go home, advisd to stay for repeat trop and reason, r/b/a erxplained, still wishes to leave due to kids at home, agreed to f/u cardiology and return for worse) Chest Pain HPI - General Stated Complaint: CP Time Seen by Provider: 12/03/21 15:53 Limitations: No Limitations - History of Present Illness HPI narrative: low chest/epigastric pain 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
--- NOTE | 2021-12-03 16:17 | PC.NURSE ---
ER MD to BS at this time, pt family member came out of room stating pt reports blurry vision
[2021-12-03 16:19] LABS: Basophils # 0.1 K/mm3 (0-0.2); Basophils % 1.1 % (0.1-2.0); Eosinophils # 0.2 K/mm3 (0.0-0.4); Eosinophils % 1.7 % (0.1-12.0); Hematocrit 39.1 % (37.0-47.0); Hemoglobin 13.1 g/dL (12.2-16.2); Lymphocytes # 3.1 K/mm3 (0.7-4.5); Mean Corpuscular HGB Conc 33.6 g/dL (31.8-35.4); Mean Corpuscular Hemoglobin 29.1 pg (27.0-31.2); Mean Corpuscular Volume 86.7 fl (81-99); Mean Platelet Volume 7.4 fl (7.4-10.4); Monocytes # 0.6 K/mm3 (0.1-1.0); Monocytes % 5.8 % (1.7-9.3); Neutrophils % 60.3 % (37.0-80.0); Platelet Count 497 K/mm3 (142-424); Red Blood Count 4.51 M/mm3 (4.20-5.40); Red Cell Distribution Width 14.1 % (11.5-17.5); White Blood Count 9.9 K/mm3 (4.8-10.8)
[2021-12-03 16:20] LABS: Chloride 102 mmol/L (98-107)
[2021-12-03 16:21] LABS: Potassium 3.9 mmoL/L (3.5-5.1); Sodium 137 mmol/L (136-145)
[2021-12-03 16:23] LABS: Alanine Aminotransferase 27 U/L (12-78); Anion Gap 9.9 mEq/L (5-15); Aspartate Amino Transferase 30 U/L (14-36); Bilirubin,Direct 0.1 mg/dl (0.0-0.4); Bilirubin,Indirect 0.2 mg/dL (0.0-0.9); Bilirubin,Total 0.3 mg/dl (0.2-1.3); Bilirubin,Unconjugated 0.2 mg/dL (0.0-1.1); Blood Urea Nitrogen 10 mg/dl (7-17); Carbon Dioxide 29 mmol/L (22.0-30.0); Creatinine Clearance Estimated 198 mL/min (50-200); Estimated Glomerular Filt Rate 111 ml/min (>60); GFR (African American) 135 ML/MIN (>60)
[2021-12-03 16:24] LABS: Albumin Level 4.1 g/dl (3.5-5.0); Alkaline Phosphatase 66 U/L (38-126); Calcium 9.2 mg/dl (8.4-10.2); Glucose 144 mg/dl (74-100)
[2021-12-03 16:31] VITALS: BP 152/82; PULSE 80; RESP 18; O2SAT 91
[2021-12-03 16:38] LABS: Troponin I < 0.01 ng/ml (0.00-0.034)
[2021-12-03 17:01] VITALS: BP 105/43; PULSE 90; RESP 14; O2SAT 92
[2021-12-03 17:30] VITALS: BP 128/75; PULSE 87; RESP 15; TEMP 37; O2SAT 94
== END 2021-12-03 17:30 | disposition home or self-care (01) ==
PROVIDERS: Emergency Provider Emergency Medicine
DX: R07.9 Chest pain, unspecified (principal); R42 Dizziness and giddiness; E11.9 Type 2 diabetes mellitus without complications; Z79.84 Long term (current) use of oral hypoglycemic drugs; Z88.7 Allergy status to serum and vaccine; Z88.8 Allergy status to other drugs, medicaments and biological substances; Z88.6 Allergy status to analgesic agent; Z91.040 Latex allergy status; Z72.0 Tobacco use
CPT/HCPCS: 71045; 80048; 80076; 84484; 85025; 93005; 99284

== ENCOUNTER → 2021-12-25 08:18 | Outpatient (CLI) | payer OTHER, SELFPAY ==
--- NOTE | 2021-12-25 08:18 | MM_ITS ---
PROCEDURE INFORMATION: Exam: Bilateral Screening 3D Mammography Exam date and time: 12/25/2021 8:18 AM Age: 41 years old Clinical indication: Screening examination TECHNIQUE: Imaging protocol: Bilateral Screening tomosynthesis and 2D mammography including computer-aided detection (CAD) when performed. COMPARISON: No relevant prior studies available. Baseline FINDINGS: MAMMOGRAPHY: Breast composition: The breasts are almost entirely fatty. Mass: None. Architectural distortion: None. Calcifications: No suspicious calcifications. Asymmetric density: None. Skin thickening: None. Axillary adenopathy: None. IMPRESSION: No mammographic evidence of malignancy. Annual screening is recommended unless otherwise clinically indicated. ASSESSMENT: BI-RADS Category 1: Negative
== END ==
PROVIDERS: PCP Internal Medicine Adolescent Medicine; Visit Provider Nurse Practitioner Obstetrics & Gynecology
DX: Z12.31 Encounter for screening mammogram for malignant neoplasm of breast (principal)
CPT/HCPCS: 77063; 77067

== ENCOUNTER → 2022-01-11 09:17 | Outpatient (CLI) | payer OTHER, SELFPAY ==
[2022-01-11 09:39] LABS: Basophils # 0.2 K/mm3 (0-0.2); Basophils % 2.7 % (0.1-2.0); Eosinophils # 0.2 K/mm3 (0.0-0.4); Eosinophils % 1.9 % (0.1-12.0); Hematocrit 43.8 % (37.0-47.0); Hemoglobin 14.2 g/dL (12.2-16.2); Mean Corpuscular HGB Conc 32.3 g/dL (31.8-35.4); Mean Corpuscular Hemoglobin 28.9 pg (27.0-31.2); Mean Corpuscular Volume 89.4 fl (81-99); Mean Platelet Volume 7.5 fl (7.4-10.4); Monocytes # 0.5 K/mm3 (0.1-1.0); Monocytes % 5.2 % (1.7-9.3); Neutrophils # 4.8 K/mm3 (1.8-7.8); Neutrophils % 55.3 % (37.0-80.0); Platelet Count 460 K/mm3 (142-424); White Blood Count 8.6 K/mm3 (4.8-10.8)
[2022-01-11 10:01] LABS: Chloride 102 mmol/L (98-107); Sodium 136 mmol/L (136-145)
[2022-01-11 10:02] LABS: Potassium 4.1 mmoL/L (3.5-5.1)
[2022-01-11 10:04] LABS: Blood Urea Nitrogen 9 mg/dl (7-17); Estimated Glomerular Filt Rate 111 ml/min (>60); GFR (African American) 135 ML/MIN (>60)
[2022-01-11 10:05] LABS: Anion Gap 10.1 mEq/L (5-15); Carbon Dioxide 28 mmol/L (22.0-30.0)
[2022-01-11 10:11] LABS: Calcium 9.1 mg/dl (8.4-10.2); Glucose 158 mg/dl (74-100)
[2022-01-11 11:11] LABS: HCG Qualitative, Serum Negative (Negative)
== END ==
PROVIDERS: PCP Internal Medicine Adolescent Medicine; Visit Provider Nurse Practitioner Obstetrics & Gynecology
DX: Z01.818 Encounter for other preprocedural examination (principal); Z20.822 Contact with and (suspected) exposure to COVID-19
CPT/HCPCS: 36415; 80048; 84703; 85025; C9803; U0003; U0005

== ENCOUNTER 2022-01-13 06:54 | Day surgery (SDC) | payer OTHER, SELFPAY ==
[2022-01-10 12:04] VITALS: BMI 43.7
[2022-01-13] VITALS (9 sets, daily range): BP systolic 123–137; BP diastolic 64–90; PULSE 87–105; RESP 16–18; TEMP 36.3–38; O2SAT 92–98
--- NOTE | 2022-01-13 08:05 | P.PN_ITS ---
[facility] Anesthesia Checklist - Patient Identification Patient Identification: Arm Band - Structural Data Admitted From: Home Planned Operative Procedure/s: Endocervical Curretage and Cone Bx Consent for Planned Operative Procedure(s) Verified: Yes Verified Documents: Surgical Consent, History and Physical - NPO Status Verified Time NPO: 00:00 - Additional verifications Anesthesia Reactions: No Hx Blood Transfusions: No Blood Transfusion Reaction: No - Airway Assessment C-Spine Mobility Assessed: Yes (mp1) TMJ Mobility Assessed: Yes Dentition: Poor Dentition - Neurological Assessment Level of Consciousness: Awake, Alert - Anesthesia Plan Anesthesia Risk discussed: Yes Anesthesia Plan: Verified ASA Class: III Anesthesia Type: General [facility] History I have reviewed the patient's past medical history: Yes Medical History: Reports:: Chronic Obstructive Pulmonary Disease (COPD), Diabetes Mellitus Type 2 Denies:: Cancer, Diabetes Mellitus Type 1, Hypertension, Internal Pacemaker, MRSA, Seizures *Have you ever received a pneumonia vaccine?: No *Have you received a flu vaccine this season?: Yes Other Medical History: Denies: Blood Transfusion Reaction Anesthesia experience/problems:: nac Other Surgeries: Yes: Tubal Ligation. 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
--- NOTE | 2022-01-13 08:06 | HMH.ANESI ---
[facility] Anesthesia Record Part I Intake, IV Amount: 400 Estimated blood loss (mL): 25 Urine output (mL): 0 Blood Pressure: 136/76 SaO2: 92 Pulse Rate: 96 Respiratory Rate: 16 Temperature: 98.4 F Patient is:: Drowsy, Stable Stable to PACU at:: 08:00
--- NOTE | 2022-01-13 08:10 | HMH.OPNOTE ---
Date of procedure: 01/13/22 Pre-op Diagnosis:: High-grade squamous intraepithelial lesion Post-op Diagnosis:: High-grade squamous intraepithelial lesion Procedure performed:: Cone biopsy and endocervical curettage Surgeon:: Gilberto Tanner MD [employer] OFFICER:: Clif Hoskins Anesthesia: LMA Estimated blood loss (mL): 25 Clinical Note:: She is a 41-year-old lady who had a Pap smear and biopsy that showed HGSIL. She elected to have a cone biopsy in the operating room rather than have a LEEP procedure in the office. The risks and benefits of surgery were discussed with the patient. Operative findings:: She had a normal-appearing cervix. There were some areas on the exocervix that did not take up Lugol's. Operative note:: She was taken to the operating room where LMA anesthesia was found be adequate. She is prepped draped normal sterile fashion in the lithotomy position. I injected 20 cc of 1% Xylocaine with epinephrine circumferentially about the cervix. The anterior lip of the cervix was grasped with a tenaculum. Then using an 11 blade I made a cylindrical incision around the cervix. It went to the depth of the blade of the scalpel. I then amputated this cylindrical shaped biopsy from the cervix. I then performed an endocervical curettage. Using cautery I then cauterized the exocervix completely circumferentially. I then injected 30 cc of 0.25% ropivacaine at the 3:00, 5:00, 7:00, and 9:00 positions of the cervix. Monsel solution was then applied to the cervical defect. She tolerated the procedure well and was taken to the recovery room in excellent condition. All sponge, instrument counts and needle counts were correct. Estimated blood loss was less than 25 cc. Condition: stable Disposition: PACU Specimens:: Cone biopsy, endocervical curettage Complications:: None
[2022-01-13 19:48] LABS: POC Glucose,Bedside 154 (70-110)
[2022-01-14 16:39] VITALS: BP 137/64; PULSE 98; TEMP 36.4
--- NOTE | 2022-01-14 16:39 | P.PN_ITS ---
[facility] Anesthesia Record Part II Discharge Time: 08:20 Destination: Surgical Day Care (OP Surgery) PACU nurse assessment reviewed?: Yes Patient Condition:: Good Anesthesia Complications:: None Swallowing reflex intact?: Yes Cyanosis?: No Blood Pressure: 137/64 Pulse Rate: 98 Temperature: 97.6 F Mental Status: Alert & Oriented Pain level:: 0 Nausea and/or vomitting:: None Intake, IV Amount: 0
== END 2022-01-13 08:53 | disposition home or self-care (01) ==
LOC: OR 06:56
PROVIDERS: PCP Internal Medicine Adolescent Medicine; Visit Provider Nurse Practitioner Obstetrics & Gynecology
PROC: 0UBC7ZZ Excision of Cervix, Via Natural or Artificial Opening (ICD-10-PCS; CPT 57520; principal; 2022-01-13 08:30)
DX: R87.613 High grade squamous intraepithelial lesion on cytologic smear of cervix (HGSIL) (principal); E11.9 Type 2 diabetes mellitus without complications; J44.9 Chronic obstructive pulmonary disease, unspecified; Z72.0 Tobacco use; Z79.899 Other long term (current) drug therapy
CPT/HCPCS: 57456; 57520; 82962; 96374; J2405

== ENCOUNTER → 2022-05-07 09:04 | Outpatient (CLI) | payer OTHER, SELFPAY ==
[2022-05-07 09:09] LABS: MANUAL DIFFERENTIAL MANUAL DIFFERENTIAL (MANUAL DIFF)
[2022-05-07 09:43] LABS: Basophils # 0.1 K/mm3 (0-0.2); Basophils % 1.2 % (0.1-2.0); Eosinophils # 0.2 K/mm3 (0.0-0.4); Eosinophils % 1.3 % (0.1-12.0); Hematocrit 42.6 % (37.0-47.0); Hemoglobin 13.7 g/dL (12.2-16.2); Lymphocytes # 2.9 K/mm3 (0.7-4.5); Lymphocytes % 26.9 % (10-50); Mean Corpuscular HGB Conc 32.1 g/dL (31.8-35.4); Mean Corpuscular Hemoglobin 28.2 pg (27.0-31.2); Mean Corpuscular Volume 87.9 fl (81-99); Monocytes # 0.5 K/mm3 (0.1-1.0); Monocytes % 4.5 % (1.7-9.3); Neutrophils # 7.2 K/mm3 (1.8-7.8); Neutrophils % 66.2 % (37.0-80.0); Platelet Count 546 K/mm3 (142-424); Red Blood Count 4.85 M/mm3 (4.20-5.40); Red Cell Distribution Width 13.7 % (11.5-17.5); White Blood Count 10.9 K/mm3 (4.8-10.8)
[2022-05-07 10:15] LABS: Eosinophils % 1 % (0-3); Lymphocytes % 26 % (10-50); Monocytes % 7 % (2-9); Neutrophils % 66 % (42-76); Total Cells Counted 100
[2022-05-07 10:16] LABS: Platelet Estimate Slight Increase; RBC Morphology Normal
[2022-05-07 10:27] LABS: Creatinine,Urine Random 70 mg/dL (Not Estab.)
[2022-05-07 10:28] LABS: Alanine Aminotransferase 25 U/L (12-78); Albumin Level 4.1 g/dl (3.5-5.0); Albumin/Globulin Ratio 1.5 (1.1-1.8); Alkaline Phosphatase 90 U/L (38-126); Anion Gap 13.5 mEq/L (5-15); Aspartate Amino Transferase 24 U/L (14-36); Bilirubin,Total 0.2 mg/dl (0.2-1.3); Blood Urea Nitrogen 9 mg/dl (7-17); Calcium 9.5 mg/dl (8.4-10.2); Carbon Dioxide 29 mmol/L (22.0-30.0); Chloride 100 mmol/L (98-107); Estimated Glomerular Filt Rate 111 ml/min (>60); GFR (African American) 134 ML/MIN (>60); Globulin 2.7 g/dL (1.3-3.2); Glucose 117 mg/dl (74-100); HDL Cholesterol 28 mg/dl (40-60); Potassium 4.5 mmoL/L (3.5-5.1); Sodium 138 mmol/L (136-145); Total Protein,Serum 6.8 g/dl (6.3-8.2)
[2022-05-07 10:33] LABS: Triglycerides 280 mg/dl (30-150); VLDL Cholesterol 56 mg/dL (0-40)
[2022-05-07 10:34] LABS: Chol/HDL Ratio 5.1 (1-3.5); Cholesterol 142 mg/dl (140-200)
[2022-05-07 10:39] LABS: Direct LDL Cholesterol 84.16 mg/dL (100-129)
[2022-05-07 10:58] LABS: Thyroid Stimulating Hormone 1.04 uIU/mL (0.465-4.68)
[2022-05-07 12:18] LABS: Hemoglobin A1C 6.4 % (4.0-6.0)
== END ==
PROVIDERS: PCP Family Medicine; Visit Provider Family Medicine
DX: E11.9 Type 2 diabetes mellitus without complications (principal); Z72.0 Tobacco use; Z79.84 Long term (current) use of oral hypoglycemic drugs
CPT/HCPCS: 36415; 80053; 80061; 82043; 82570; 83036; 84443; 85007; 85014; 85018; 85048; 85049

== ENCOUNTER → 2022-12-05 23:22 | Outpatient (CLI) | payer OTHER, SELFPAY ==
[2022-12-05 17:57] LABS: Basophils # 0.1 K/mm3 (0-0.2); Basophils % 0.9 % (0.1-2.0); Eosinophils # 0.1 K/mm3 (0.0-0.4); Eosinophils % 1.3 % (0.1-12.0); Hematocrit 42.5 % (37.0-47.0); Hemoglobin 13.6 g/dL (12.2-16.2); Lymphocytes # 2.7 K/mm3 (0.7-4.5); Lymphocytes % 29.2 % (10-50); Mean Corpuscular Hemoglobin 27.4 pg (27.0-31.2); Mean Corpuscular Volume 85.7 fl (81-99); Mean Platelet Volume 8.2 fl (7.4-10.4); Monocytes # 0.4 K/mm3 (0.1-1.0); Monocytes % 3.9 % (1.7-9.3); Neutrophils # 5.9 K/mm3 (1.8-7.8); Neutrophils % 64.6 % (37.0-80.0); Platelet Count 545 K/mm3 (142-424); Red Blood Count 4.96 M/mm3 (4.20-5.40); Red Cell Distribution Width 14.2 % (11.5-17.5); White Blood Count 9.2 K/mm3 (4.8-10.8)
[2022-12-05 18:03] LABS: Alanine Aminotransferase 32 U/L (12-78); Albumin Level 4.1 g/dl (3.5-5.0); Albumin/Globulin Ratio 1.4 (1.1-1.8); Alkaline Phosphatase 83 U/L (38-126); Anion Gap 14.5 mEq/L (5-15); Aspartate Amino Transferase 31 U/L (14-36); Bilirubin,Total 0.3 mg/dl (0.2-1.3); Blood Urea Nitrogen 8 mg/dl (7-17); Calcium 8.8 mg/dl (8.4-10.2); Carbon Dioxide 25 mmol/L (22.0-30.0); Chloride 102 mmol/L (98-107); Chol/HDL Ratio 5.1 (1-3.5); Cholesterol 149 mg/dl (140-200); Estimated Glomerular Filt Rate 137 ml/min (>60); GFR (African American) 165 ML/MIN (>60); Globulin 2.9 g/dL (1.3-3.2); Glucose 185 mg/dl (74-100); HDL Cholesterol 29 mg/dl (40-60); Potassium 4.5 mmoL/L (3.5-5.1); Sodium 137 mmol/L (136-145); Triglycerides 275 mg/dl (30-150); VLDL Cholesterol 55 mg/dL (0-40)
[2022-12-05 18:13] LABS: Direct LDL Cholesterol 90.51 mg/dL (100-129)
[2022-12-05 18:19] LABS: 25-OH Vitamin D, Total 21.8 ng/mL (30-100)
[2022-12-05 18:33] LABS: Hemoglobin A1C 7.5 % (4.0-6.0)
== END ==
PROVIDERS: PCP Student in an Organized Health Care Education/Training Program; Visit Provider Student in an Organized Health Care Education/Training Program
DX: E11.9 Type 2 diabetes mellitus without complications (principal); J02.9 Acute pharyngitis, unspecified; Z13.220 Encounter for screening for lipoid disorders; E55.9 Vitamin D deficiency, unspecified; Z79.899 Other long term (current) drug therapy
CPT/HCPCS: 80053; 80061; 82306; 83036; 85025

== ENCOUNTER → 2022-12-08 23:52 | Outpatient (CLI) | payer OTHER, SELFPAY ==
[2022-12-08 17:56] LABS: Adenovirus,PCR Not Detected (NotDetected); Bordetella Pertussis Not Detected (NotDetected); Chlamydophila Pneumoniae, PCR Not Detected (NotDetected); Coronavirus 19, PCR Not Detected (NotDetected); Coronavirus 229E Not Detected (NotDetected); Coronavirus NL63 Not Detected (NotDetected); Coronavirus OC43 Not Detected (NotDetected); Coronovirus HKU1,PCR Not Detected (NotDetected); Human Metapneumovirus Not Detected (NotDetected); Influenza A, PCR Not Detected (NotDetected); Influenza AH1, 2009 Not Detected (NotDetected); Influenza AH1, PCR Not Detected (NotDetected); Influenza AH3,PCR Not Detected (NotDetected); Influenza B, PCR Not Detected (NotDetected); Mycoplasma Pneumoniae, PCR Not Detected (NotDetected); Parainfluenza 1, PCR Not Detected (NotDetected); Parainfluenza 2, PCR Not Detected (NotDetected); Parainfluenza 3, PCR Not Detected (NotDetected); Parainfluenza 4, PCR Not Detected (NotDetected); Respiratory Syncytial Virus Not Detected (NotDetected); Rhinovirus/Enterovirus Not Detected (NotDetected)
== END ==
PROVIDERS: PCP Student in an Organized Health Care Education/Training Program; Visit Provider Student in an Organized Health Care Education/Training Program
DX: J32.9 Chronic sinusitis, unspecified (principal)
CPT/HCPCS: 87581; 87632; 87635; 87798; C9803; U0003; U0005

== ENCOUNTER 2022-12-18 20:07 | Emergency (ER) | payer OTHER, SELFPAY ==
[2022-12-18 20:45] VITALS: BP 150/73; PULSE 94; RESP 18; TEMP 36.7; O2SAT 98; BMI 43.0
--- NOTE | 2022-12-18 20:52 | ECG_ITS ---
APPROVED REPORT Exam: Resting ECG HR:92 bpm ECG Measurements Heart Rate 92 AXES AK 195 P 68 QRSd 93 QRS 17 QT 364 T 19 QTc 413 Conclusion SINUS RHYTHM INCOMPLETE RIGHT BUNDLE BRANCH BLOCK [90+ ms QRS DURATION, TERMINAL R IN V1/V2, 40+ ms S IN I/aVL/V4/V5/V6] BORDERLINE ECG UNCONFIRMED REPORT Electronically signed by : Ariel Langston MD 12/19/2022 21:30:38
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
--- NOTE | 2022-12-18 21:05 | XR_ITS ---
PROCEDURE INFORMATION: Exam: XR Chest Exam date and time: 12/18/2022 9:25 PM Age: 42 years old Clinical indication: Other: Syncope TECHNIQUE: Imaging protocol: Radiologic exam of the chest. Views: 1 view. Total images: 1 COMPARISON: CR XR CHEST AP 12/03/2021 4:02 PM FINDINGS: Lungs: Unremarkable. No consolidation. No pulmonary vascular congestion or edema. Pleural spaces: Unremarkable. No pleural effusion. No pneumothorax. Heart/Mediastinum: Unremarkable. No cardiomegaly. No mediastinal widening or hilar enlargement. Bones/joints: Unremarkable. IMPRESSION: No radiographically acute cardiopulmonary process.
[2022-12-18 21:15] LABS: Chloride 98 mmol/L (98-107); Potassium 4.3 mmoL/L (3.5-5.1); Sodium 137 mmol/L (136-145)
[2022-12-18 21:17] LABS: Microscopic, Urine URINE MICROSCOPIC (MICROSCOPIC)
[2022-12-18 21:17] LABS: Alanine Aminotransferase 45 U/L (12-78); Aspartate Amino Transferase 37 U/L (14-36); Blood Urea Nitrogen 9 mg/dl (7-17); Creatinine Clearance Estimated 94 mL/min (50-200); Estimated Glomerular Filt Rate 111 ml/min (>60); GFR (African American) 134 ML/MIN (>60)
[2022-12-18 21:18] LABS: Albumin/Globulin Ratio 1.3 (1.1-1.8); Alkaline Phosphatase 88 U/L (38-126); Anion Gap 15.3 mEq/L (5-15); Bilirubin,Total 0.2 mg/dl (0.2-1.3); Calcium 8.7 mg/dl (8.4-10.2); Carbon Dioxide 28 mmol/L (22.0-30.0); Globulin 3.1 g/dL (1.3-3.2); Glucose 258 mg/dl (74-100); Total Protein,Serum 7.1 g/dl (6.3-8.2)
[2022-12-18 21:19] LABS: Acetone, Serum (Rapid) None Detected (None Detect)
[2022-12-18 21:22] LABS: Basophils # 0.1 K/mm3 (0-0.2); Basophils % 0.5 % (0.1-2.0); Eosinophils # 0.1 K/mm3 (0.0-0.4); Eosinophils % 0.7 % (0.1-12.0); Hematocrit 39.1 % (37.0-47.0); Hemoglobin 12.7 g/dL (12.2-16.2); Lymphocytes # 2.5 K/mm3 (0.7-4.5); Lymphocytes % 18.1 % (10-50); Mean Corpuscular HGB Conc 32.4 g/dL (31.8-35.4); Mean Corpuscular Hemoglobin 26.8 pg (27.0-31.2); Mean Corpuscular Volume 82.9 fl (81-99); Mean Platelet Volume 7.3 fl (7.4-10.4); Monocytes # 0.5 K/mm3 (0.1-1.0); Monocytes % 3.6 % (1.7-9.3); Neutrophils # 10.7 K/mm3 (1.8-7.8); Platelet Count 548 K/mm3 (142-424); Red Blood Count 4.72 M/mm3 (4.20-5.40); Red Cell Distribution Width 14.3 % (11.5-17.5); White Blood Count 13.8 K/mm3 (4.8-10.8)
[2022-12-18 21:24] LABS: Appearance,Urine CLEAR (Clear); Bilirubin,Urine Negative (Negative); Blood, Urine Negative (Negative); Color,Urine YELLOW (Yellow); Glucose,Urine (UA) 3+ (Negative); Ketones,Urine Negative (Negative); Leukocyte Esterase,Urine Negative (Negative); Nitrate,Urine Negative (Negative); Protein,Urine Negative (Negative); Urobilinogen,Urine 0.2 EU/dl (0.2)
[2022-12-18 21:34] LABS: Troponin I < 0.01 ng/ml (0.00-0.034)
[2022-12-18 21:38] LABS: Barbiturates Screen,Urine Negative ng/ml (<200); Benzodiazepines Screen,Urine Negative ng/ml (<200)
[2022-12-18 21:39] LABS: Amphetamine/Metha Screen,Urine Negative ng/ml (<1000)
[2022-12-18 21:40] LABS: Cannabinoid Screen,Urine Negative ng/ml (<50); Cocaine Screen,Urine Negative ng/ml (<300)
[2022-12-18 21:41] LABS: Methadone Screen,Urine Negative ng/ml (<300)
[2022-12-18 21:42] LABS: Opiate Screen,Urine Negative ng/ml (<300); Phencyclidine Screen,Urine Negative ng/ml (<25)
[2022-12-18 22:00] VITALS: BP 124/76; BP 134/76; BP 141/69; PULSE 91; PULSE 93; PULSE 97
--- NOTE | 2022-12-18 22:00 | PC.NURSE ---
Luzma rounded on pt at this time. Updated on POC. No new needs
--- NOTE | 2022-12-18 23:08 | PC.NURSE ---
Patient refused iv fluids.
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
[2022-12-18 23:16] VITALS: BP 133/73; PULSE 87; RESP 18; TEMP 36.6
--- NOTE | 2022-12-18 23:19 | PC.NURSE ---
2311 pt states she is leaving, pt signs AMA papers. pt was educated about signs and symptoms dictating return as well as importance of following up. pt was educated about the risks of leaving against medical advice. pt still decided to leave with spouse.
[2022-12-19 02:25] LABS: POC Glucose,Bedside 292 (70-110)
== END 2022-12-18 23:19 | disposition left against medical advice (07) ==
PROVIDERS: Emergency Provider Emergency Medicine; PCP Student in an Organized Health Care Education/Training Program
DX: R55 Syncope and collapse (principal); E11.65 Type 2 diabetes mellitus with hyperglycemia; R11.2 Nausea with vomiting, unspecified; F17.210 Nicotine dependence, cigarettes, uncomplicated; I45.19 Other right bundle-branch block; Z79.84 Long term (current) use of oral hypoglycemic drugs
CPT/HCPCS: 70450; 71045; 80053; 80305; 81001; 82009; 82962; 84484; 85025; 93005; 93041; 99285

== ENCOUNTER → 2022-12-18 23:23 | Outpatient (CLI) | payer OTHER, SELFPAY | PROVIDERS: PCP Student in an Organized Health Care Education/Training Program; Visit Provider Student in an Organized Health Care Education/Training Program | DX: E11.9 Type 2 diabetes mellitus without complications (principal); Z79.84 Long term (current) use of oral hypoglycemic drugs | CPT/HCPCS: 87086 ==

== ENCOUNTER → 2023-04-02 14:23 | Outpatient (CLI) | payer OTHER, SELFPAY ==
[2023-04-02 20:27] LABS: Basophils # 0.1 K/mm3 (0-0.2); Basophils % 0.9 % (0.1-2.0); Eosinophils # 0.2 K/mm3 (0.0-0.4); Eosinophils % 1.6 % (0.1-12.0); Hematocrit 43.9 % (37.0-47.0); Hemoglobin 13.8 g/dL (12.2-16.2); Lymphocytes # 3.4 K/mm3 (0.7-4.5); Mean Corpuscular HGB Conc 31.4 g/dL (31.8-35.4); Mean Corpuscular Hemoglobin 27.3 pg (27.0-31.2); Mean Corpuscular Volume 86.9 fl (81-99); Mean Platelet Volume 8.5 fl (7.4-10.4); Monocytes # 0.5 K/mm3 (0.1-1.0); Monocytes % 4.6 % (1.7-9.3); Neutrophils # 5.9 K/mm3 (1.8-7.8); Platelet Count 546 K/mm3 (142-424); Red Blood Count 5.05 M/mm3 (4.20-5.40); Red Cell Distribution Width 14.4 % (11.5-17.5); White Blood Count 9.9 K/mm3 (4.8-10.8)
[2023-04-02 20:55] LABS: Alanine Aminotransferase 29 U/L (12-78); Albumin Level 4.1 g/dl (3.5-5.0); Albumin/Globulin Ratio 1.2 (1.1-1.8); Alkaline Phosphatase 76 U/L (38-126); Anion Gap 11.7 mEq/L (5-15); Aspartate Amino Transferase 29 U/L (14-36); Bilirubin,Total 0.2 mg/dl (0.2-1.3); Blood Urea Nitrogen 7 mg/dl (7-17); Calcium 9.4 mg/dl (8.4-10.2); Carbon Dioxide 30 mmol/L (22.0-30.0); Chloride 103 mmol/L (98-107); Chol/HDL Ratio 5.9 (1-3.5); Cholesterol 165 mg/dl (140-200); Estimated Glomerular Filt Rate 92 ml/min (>60); GFR (African American) 112 ML/MIN (>60); Globulin 3.3 g/dL (1.3-3.2); Glucose 126 mg/dl (74-100); HDL Cholesterol 28 mg/dl (40-60); Potassium 4.7 mmoL/L (3.5-5.1); Sodium 140 mmol/L (136-145); Total Protein,Serum 7.4 g/dl (6.3-8.2); Triglycerides 316 mg/dl (30-150); VLDL Cholesterol 63 mg/dL (0-40)
[2023-04-02 21:09] LABS: 25-OH Vitamin D, Total 21.6 ng/mL (30-100)
[2023-04-02 21:10] LABS: Direct LDL Cholesterol 102.02 mg/dL (100-129)
[2023-04-02 21:23] LABS: Thyroid Stimulating Hormone 0.92 uIU/mL (0.465-4.68)
[2023-04-02 21:39] LABS: Hemoglobin A1C 6.3 % (4.0-6.0)
[2023-04-04 18:53] LABS: Peripheral Smear Review Scanned Result
== END ==
PROVIDERS: PCP Student in an Organized Health Care Education/Training Program; Visit Provider Student in an Organized Health Care Education/Training Program
DX: D75.839 Thrombocytosis, unspecified (principal); E55.9 Vitamin D deficiency, unspecified; E11.9 Type 2 diabetes mellitus without complications; Z79.84 Long term (current) use of oral hypoglycemic drugs
CPT/HCPCS: 80053; 80061; 82306; 83036; 84443; 85025

== ENCOUNTER → 2023-05-04 11:38 | Outpatient (CLI) | payer OTHER, SELFPAY ==
[2023-05-04 12:32] LABS: Basophils # 0.1 K/mm3 (0-0.2); Basophils % 0.8 % (0.1-2.0); Eosinophils # 0.2 K/mm3 (0.0-0.4); Eosinophils % 1.8 % (0.1-12.0); Hematocrit 40.8 % (37.0-47.0); Hemoglobin 14.1 g/dL (12.2-16.2); Lymphocytes # 3.2 K/mm3 (0.7-4.5); Lymphocytes % 32.5 % (10-50); Mean Corpuscular HGB Conc 34.7 g/dL (31.8-35.4); Mean Corpuscular Hemoglobin 29.2 pg (27.0-31.2); Mean Corpuscular Volume 84.2 fl (81-99); Mean Platelet Volume 7.3 fl (7.4-10.4); Monocytes # 0.5 K/mm3 (0.1-1.0); Monocytes % 5.1 % (1.7-9.3); Neutrophils # 5.9 K/mm3 (1.8-7.8); Neutrophils % 59.8 % (37.0-80.0); Platelet Count 551 K/mm3 (142-424); Red Blood Count 4.84 M/mm3 (4.20-5.40); Red Cell Distribution Width 14.6 % (11.5-17.5); White Blood Count 9.8 K/mm3 (4.8-10.8)
[2023-05-04 14:45] LABS: Thyroid Stimulating Hormone 0.74 uIU/mL (0.465-4.68)
[2023-05-04 15:08] LABS: Iron 62 ug/dL (37-170)
[2023-05-04 15:18] LABS: Total Iron Binding Capacity 408 ug/dL (265-497)
[2023-05-04 15:44] LABS: Ferritin 20.7 ng/ml (6.24-137)
[2023-05-06 13:52] VITALS: BMI 40.9
[2023-05-17 14:10] LABS: Interpretation: Negative (.)
== END ==
PROVIDERS: PCP Student in an Organized Health Care Education/Training Program; Visit Provider Internal Medicine Medical Oncology
DX: D50.9 Iron deficiency anemia, unspecified (principal); Z79.899 Other long term (current) drug therapy; D75.839 Thrombocytosis, unspecified
CPT/HCPCS: 36415; 81206; 82728; 83540; 83550; 84443; 85025

== ENCOUNTER → 2023-05-11 12:55 | Outpatient (CLI) | payer OTHER, SELFPAY | PROVIDERS: PCP Student in an Organized Health Care Education/Training Program; Visit Provider Internal Medicine Medical Oncology | DX: D50.9 Iron deficiency anemia, unspecified (principal) | CPT/HCPCS: 36415; 81270 ==

== ENCOUNTER → 2023-06-12 23:58 | Outpatient (CLI) | payer OTHER, SELFPAY | PROVIDERS: PCP Student in an Organized Health Care Education/Training Program; Visit Provider Student in an Organized Health Care Education/Training Program | DX: E11.9 Type 2 diabetes mellitus without complications (principal); E55.9 Vitamin D deficiency, unspecified; Z79.84 Long term (current) use of oral hypoglycemic drugs; Z79.899 Other long term (current) drug therapy | CPT/HCPCS: 80053; 80061; 82306; 83036; 84443; 85025 ==

== ENCOUNTER → 2023-06-16 19:18 | Outpatient (CLI) | payer OTHER, SELFPAY ==
[2023-06-12 18:42] LABS: Basophils # 0.1 K/mm3 (0-0.2); Eosinophils # 0.2 K/mm3 (0.0-0.4); Eosinophils % 1.4 % (0.1-12.0); Hematocrit 42.1 % (37.0-47.0); Hemoglobin 13.6 g/dL (12.2-16.2); Lymphocytes # 3.4 K/mm3 (0.7-4.5); Lymphocytes % 30.7 % (10-50); Mean Corpuscular HGB Conc 32.3 g/dL (31.8-35.4); Mean Corpuscular Hemoglobin 27.9 pg (27.0-31.2); Mean Corpuscular Volume 86.4 fl (81-99); Mean Platelet Volume 8.3 fl (7.4-10.4); Monocytes # 0.6 K/mm3 (0.1-1.0); Monocytes % 4.9 % (1.7-9.3); Neutrophils # 6.9 K/mm3 (1.8-7.8); Platelet Count 510 K/mm3 (142-424); Red Blood Count 4.88 M/mm3 (4.20-5.40); Red Cell Distribution Width 14.4 % (11.5-17.5); White Blood Count 11.1 K/mm3 (4.8-10.8)
[2023-06-12 18:47] LABS: Alanine Aminotransferase 44 U/L (12-78); Albumin/Globulin Ratio 1.4 (1.1-1.8); Alkaline Phosphatase 111 U/L (38-126); Aspartate Amino Transferase 35 U/L (14-36); Bilirubin,Total 0.2 mg/dl (0.2-1.3); Blood Urea Nitrogen 9 mg/dl (7-17); Calcium 8.4 mg/dl (8.4-10.2); Carbon Dioxide 27 mmol/L (22.0-30.0); Chloride 99 mmol/L (98-107); Cholesterol 125 mg/dl (140-200); Estimated Glomerular Filt Rate 110 ml/min (>60); GFR (African American) 133 ML/MIN (>60); Globulin 2.9 g/dL (1.3-3.2); Glucose 329 mg/dl (74-100); HDL Cholesterol 25 mg/dl (40-60); Sodium 133 mmol/L (136-145); Total Protein,Serum 6.9 g/dl (6.3-8.2)
[2023-06-12 18:56] LABS: Triglycerides 638 mg/dl (30-150)
[2023-06-12 18:58] LABS: Direct LDL Cholesterol 60.67 mg/dL (100-129)
[2023-06-12 19:04] LABS: 25-OH Vitamin D, Total 52.8 ng/mL (30-100)
[2023-06-12 19:17] LABS: Thyroid Stimulating Hormone 0.76 uIU/mL (0.465-4.68)
[2023-06-12 20:03] LABS: Hemoglobin A1C 8.8 % (4.0-6.0)
[2023-06-16 20:24] LABS: Creatinine,Urine Random 54 mg/dL (Not Estab.)
== END ==
PROVIDERS: PCP Student in an Organized Health Care Education/Training Program; Visit Provider Student in an Organized Health Care Education/Training Program
DX: E11.9 Type 2 diabetes mellitus without complications (principal); Z79.84 Long term (current) use of oral hypoglycemic drugs; Z79.85 Long-term (current) use of injectable non-insulin antidiabetic drugs
CPT/HCPCS: 82043; 82570

== ENCOUNTER 2023-07-15 15:54 | Outpatient (CLI) | payer OTHER, SELFPAY | END 2023-07-15 23:59 | LOC: RT 15:55 | PROVIDERS: PCP Student in an Organized Health Care Education/Training Program; Visit Provider Physician Assistant | DX: Z86.79 Personal history of other diseases of the circulatory system (principal) | CPT/HCPCS: 93225 ==

== ENCOUNTER 2023-08-10 21:49 | Outpatient (CLI) | payer OTHER, SELFPAY ==
[2023-08-10 20:15] LABS: Hemoglobin A1C 7.7 % (4.0-6.0)
[2023-08-10 21:05] LABS: Vitamin B12 298 pg/mL (239-931)
[2023-08-10 21:06] LABS: Folate 9.14 ng/mL
== END 2023-08-10 23:59 ==
LOC: LAB.DROPOF 21:49
PROVIDERS: PCP Student in an Organized Health Care Education/Training Program; Visit Provider Student in an Organized Health Care Education/Training Program
DX: R20.0 Anesthesia of skin (principal); R20.2 Paresthesia of skin; Z79.899 Other long term (current) drug therapy
CPT/HCPCS: 82607; 82746; 83036

== ENCOUNTER 2023-08-18 07:23 | Outpatient (CLI) | payer OTHER, SELFPAY ==
--- NOTE | 2023-08-18 07:24 | CA_ITS ---
APPROVED REPORT EXAM: Comprehensive 2D, Doppler, and color-flow Echocardiogram Direct Service Provider: Carole Aldridge RT(R) Ht: 5 ft 2 in Wt: 220lbs BSA: 1.99 BP: 134/78 mmHg Indications: syncope, smoker, palpitations, DM, hyperlipidemia, hx SVT 2D Dimensions LVEF (Granda's) 62.60 % F: 54 - 74 LV Volume 77.50 mL F: 46 - 106 LV Volume Index 38.9 mL/m2 F: 29 - 61 LA Volume 26.90 mL LA Volume Index 13.52 mL/m2 (M/F) 16-34 EF AP4 63.60 % EF AP2 64.1 % EF BP 62.6 % GL Strain -20.8 % M-Mode Dimensions RVDd 2.33 cm (0.9-2.6) LA Diam 3.01 cm (1.9-4.0) LVDd 5.16 cm (3.5-5.7) LVDs 3.94 cm (3.5-5.7) IVSd 0.86 cm (0.6-1.1) PWd 0.82 cm (0.6-1.1) EF (Teich) 46.90% FS 23.60% EDV (Teich) 127.20 mL ESV (Teich) 67.50 mL LV Diastology E Decel Time 150 (160-240 msec) E/A Ratio 1.3 Mitral Valve MV E Max Grey. 89.0 (40-130 cm/s) MV A Velocity 67.0 (40-130 cm/s) E/A Ratio 1.32 MV PHT 44.0 ms Left Ventricle The left ventricle is normal size. The left ventricular systolic function is normal. The left ventricular ejection fraction is within the normal range. There is increased LV wall thickness. There is normal LV segmental wall motion. The left ventricular diastolic function is normal. LVEF is 60%. Right Ventricle The right ventricle is normal size. The right ventricular systolic function is normal. Atria The left atrium size is normal. The right atrium size is normal. There is no Doppler evidence of interatrial shunt. Lipomatous hypertrophy of the interatrial septum is noted. Aortic Valve The aortic valve opens well. There is no aortic valvular stenosis. No aortic regurgitation is present. Mitral Valve The mitral valve is normal in structure. No evidence of mitral valve stenosis. Trace mitral regurgitation. Tricuspid Valve The tricuspid valve leaflets are thin and pliable. Trace tricuspid regurgitation. There is insufficient TR jet to estimate RVSP. Pulmonic Valve The pulmonary valve is normal in structure. Trace pulmonic regurgitation. Great Vessels The aortic root is normal in size. The ascending aorta is normal in size. The IVC is not well-visualized. Pericardium There is no pericardial effusion. Other Information Study Quality: Adequate Conclusion Normal biventricular systolic function. No significant valvular stenosis or regurgitation. Lipomatous hypertrophy of the interatrial septum is noted. Electronically signed by : Ana Greene MD 08/21/2023 01:18:18
--- NOTE | 2023-08-18 07:29 | US_ITS ---
FINAL REPORT CLINICAL HISTORY: diminished pulses in BLE, DM, hyperlipidemia, syncope, neuropathy, smoker COMPARISON: None FINDINGS: ANKLE-BRACHIAL PRESSURE INDICES Pressure indices are as follows: RIGHT LOWER EXTREMITY: Ankle-brachial pressure index: 1.1 Comments: Normal LEFT LOWER EXTREMITY: Ankle-brachial pressure index: 1.2 Comments: Normal IMPRESSION: No evidence of significant obstructive peripheral vascular disease of the lower extremities Reviewed, Interpreted and Dictated by Devon Myers MD Transcribed by Toyin Ferro Authenticated and [facility]
== END 2023-08-18 23:59 ==
LOC: RT 07:24
PROVIDERS: PCP Student in an Organized Health Care Education/Training Program; Visit Provider Physician Assistant
DX: R09.89 Other specified symptoms and signs involving the circulatory and respiratory systems (principal); E11.9 Type 2 diabetes mellitus without complications; Z86.79 Personal history of other diseases of the circulatory system; Z72.0 Tobacco use; R55 Syncope and collapse; Z79.899 Other long term (current) drug therapy
CPT/HCPCS: 93306; 93923

== ENCOUNTER 2023-10-02 19:01 | Emergency (ER) | payer OTHER, SELFPAY ==
[2023-10-02 19:14] VITALS: BP 173/91; PULSE 124; RESP 20; TEMP 36.8; O2SAT 96; BMI 38.4
--- NOTE | 2023-10-02 19:14 | PC.NURSE ---
initial finger stick [id number], notified
[2023-10-02] MEDS: 0.9 % SODIUM CHLORIDE 1000ML 1,000 ML 999 ML IV (19:24)
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
[2023-10-02 19:37] LABS: Basophils # 0.2 K/mm3 (0-0.2); Basophils % 1.7 % (0.1-2.0); Eosinophils # 0.2 K/mm3 (0.0-0.4); Eosinophils % 1.3 % (0.1-12.0); Hematocrit 43.2 % (37.0-47.0); Hemoglobin 13.7 g/dL (12.2-16.2); Lymphocytes # 2.8 K/mm3 (0.7-4.5); Lymphocytes % 24.5 % (10-50); Mean Corpuscular HGB Conc 31.6 g/dL (31.8-35.4); Mean Corpuscular Hemoglobin 28.8 pg (27.0-31.2); Mean Corpuscular Volume 91.1 fl (81-99); Mean Platelet Volume 7.3 fl (7.4-10.4); Monocytes # 0.6 K/mm3 (0.1-1.0); Monocytes % 5.2 % (1.7-9.3); Neutrophils # 7.8 K/mm3 (1.8-7.8); Neutrophils % 67.3 % (37.0-80.0); Platelet Count 494 K/mm3 (142-424); Red Blood Count 4.74 M/mm3 (4.20-5.40); Red Cell Distribution Width 14.1 % (11.5-17.5); White Blood Count 11.5 K/mm3 (4.8-10.8)
[2023-10-02 19:42] LABS: Alanine Aminotransferase 43 U/L (12-78); Albumin Level 4.2 g/dl (3.5-5.0); Albumin/Globulin Ratio 1.4 (1.1-1.8); Alkaline Phosphatase 105 U/L (38-126); Anion Gap 11.7 mEq/L (5-15); Aspartate Amino Transferase 33 U/L (14-36); Bilirubin,Total 0.3 mg/dl (0.2-1.3); Blood Urea Nitrogen 6 mg/dl (7-17); Calcium 9.3 mg/dl (8.4-10.2); Carbon Dioxide 29 mmol/L (22.0-30.0); Chloride 99 mmol/L (98-107); Creatinine Clearance Estimated 186 mL/min (50-200); Estimated Glomerular Filt Rate 110 ml/min (>60); GFR (African American) 133 ML/MIN (>60); Glucose 321 mg/dl (74-100); Potassium 3.7 mmoL/L (3.5-5.1); Sodium 136 mmol/L (136-145); Total Protein,Serum 7.2 g/dl (6.3-8.2)
[2023-10-02 19:44] LABS: Lactic Acid 2.3 mmol/L (0.7-2.1)
[2023-10-02 19:46] LABS: VBG Base Excess 0.9 mmol/L (-2.4-2.3); VBG HCO3 25.7 mmol/L (23-30); VBG Oxygen Saturation 86.9 % (50-70); VBG PCO2 42.5 mmol/L (35-51); VBG PO2 48.5 mmol/L (28-40)
[2023-10-02 19:47] LABS: Lactate Venous 2.6 mmol/L (0.4-2.0)
[2023-10-02 19:56] LABS: Acetone, Serum (Rapid) None Detected (None Detect)
[2023-10-02 20:01] LABS: HCG,Quantitative < 2 mIU/ml (0-5.42)
[2023-10-02] MEDS: diphenhydrAMINE 50MG/ML VIAL 25 MG IV (20:10)
[2023-10-02] MEDS: METOCLOPRAMIDE HCL 10MG/2ML VIAL 10 MG IVP (20:10)
--- NOTE | 2023-10-02 20:23 | PC.NURSE ---
patient rang out states I have agoraphobia and need to go home RN informed
[2023-10-02 20:29] VITALS: BP 141/91; PULSE 115; RESP 20; TEMP 36.8; O2SAT 96
[2023-10-02 23:28] LABS: Reflex Lactic Add Lactic Reflex
== END 2023-10-02 20:31 | disposition left against medical advice (07) ==
LOC: ER 19:20
PROVIDERS: Emergency Provider Emergency Medicine; PCP Student in an Organized Health Care Education/Training Program
DX: E11.65 Type 2 diabetes mellitus with hyperglycemia (principal); Z79.4 Long term (current) use of insulin; F41.1 Generalized anxiety disorder; R11.2 Nausea with vomiting, unspecified; F31.9 Bipolar disorder, unspecified; F17.210 Nicotine dependence, cigarettes, uncomplicated
CPT/HCPCS: 80053; 82009; 82803; 83605; 84702; 85025; 96361; 96374; 96375; 99284

== ENCOUNTER 2023-11-04 10:36 | Outpatient (CLI) | payer OTHER, SELFPAY ==
[2023-11-04 22:17] LABS: Barbiturates Screen,Urine Negative ng/ml (<200); Benzodiazepines Screen,Urine Negative ng/ml (<200)
[2023-11-04 22:18] LABS: Amphetamine/Metha Screen,Urine Negative ng/ml (<1000)
[2023-11-04 22:19] LABS: Cocaine Screen,Urine Negative ng/ml (<300); Methadone Screen,Urine Negative ng/ml (<300)
[2023-11-04 22:20] LABS: Cannabinoid Screen,Urine Negative ng/ml (<50)
[2023-11-04 22:21] LABS: Opiate Screen,Urine Negative ng/ml (<300); Phencyclidine Screen,Urine Negative ng/ml (<25)
== END 2023-11-04 23:59 | disposition home or self-care (01) ==
LOC: LAB.DROPOF 11-06 10:36
PROVIDERS: PCP Nurse Practitioner Acute Care; Visit Provider Nurse Practitioner Acute Care
DX: F41.1 Generalized anxiety disorder (principal); F41.0 Panic disorder [episodic paroxysmal anxiety]; F42.9 Obsessive-compulsive disorder, unspecified
CPT/HCPCS: 80307

== ENCOUNTER 2023-11-09 08:12 | Outpatient (CLI) | payer OTHER, SELFPAY ==
[2023-11-09 19:05] LABS: Basophils # 0.1 K/mm3 (0-0.2); Basophils % 1.2 % (0.1-2.0); Eosinophils # 0.1 K/mm3 (0.0-0.4); Eosinophils % 1.1 % (0.1-12.0); Hematocrit 43.3 % (37.0-47.0); Hemoglobin 13.6 g/dL (12.2-16.2); Lymphocytes # 2.5 K/mm3 (0.7-4.5); Lymphocytes % 24.3 % (10-50); Mean Corpuscular HGB Conc 31.4 g/dL (31.8-35.4); Mean Corpuscular Hemoglobin 28.6 pg (27.0-31.2); Mean Corpuscular Volume 91.3 fl (81-99); Mean Platelet Volume 9.2 fl (7.4-10.4); Monocytes # 0.5 K/mm3 (0.1-1.0); Monocytes % 5.2 % (1.7-9.3); Neutrophils # 7.1 K/mm3 (1.8-7.8); Neutrophils % 68.1 % (37.0-80.0); Platelet Count 486 K/mm3 (142-424); Red Blood Count 4.74 M/mm3 (4.20-5.40); Red Cell Distribution Width 14.6 % (11.5-17.5); White Blood Count 10.4 K/mm3 (4.8-10.8)
[2023-11-09 19:17] LABS: Alanine Aminotransferase 36 U/L (12-78); Albumin Level 4.1 g/dl (3.5-5.0); Albumin/Globulin Ratio 1.4 (1.1-1.8); Alkaline Phosphatase 86 U/L (38-126); Anion Gap 13.4 mEq/L (5-15); Aspartate Amino Transferase 31 U/L (14-36); Bilirubin,Total 0.4 mg/dl (0.2-1.3); Blood Urea Nitrogen 9 mg/dl (7-17); Calcium 9.6 mg/dl (8.4-10.2); Carbon Dioxide 28 mmol/L (22.0-30.0); Chloride 99 mmol/L (98-107); Chol/HDL Ratio 3.6 (1-3.5); Cholesterol 120 mg/dl (140-200); Estimated Glomerular Filt Rate 110 ml/min (>60); GFR (African American) 133 ML/MIN (>60); Glucose 234 mg/dl (74-100); HDL Cholesterol 33 mg/dl (40-60); Potassium 4.4 mmoL/L (3.5-5.1); Sodium 136 mmol/L (136-145); Total Protein,Serum 7.1 g/dl (6.3-8.2); Triglycerides 269 mg/dl (30-150); VLDL Cholesterol 54 mg/dL (0-40)
[2023-11-09 19:36] LABS: 25-OH Vitamin D, Total 73.5 ng/mL (30-100)
[2023-11-09 19:47] LABS: Hemoglobin A1C 8.4 % (4.0-6.0)
[2023-11-09 20:09] LABS: Vitamin B12 917 pg/mL (239-931)
== END 2023-11-09 23:59 | disposition home or self-care (01) ==
LOC: LAB.DROPOF 11-11 08:12
PROVIDERS: PCP Student in an Organized Health Care Education/Training Program; Visit Provider Student in an Organized Health Care Education/Training Program
DX: E66.01 Morbid (severe) obesity due to excess calories (principal); Z68.41 Body mass index [BMI] 40.0-44.9, adult; E78.1 Pure hyperglyceridemia; E11.9 Type 2 diabetes mellitus without complications; E56.9 Vitamin deficiency, unspecified; Z79.4 Long term (current) use of insulin; Z79.899 Other long term (current) drug therapy
CPT/HCPCS: 80053; 80061; 82306; 82607; 83036; 85025

== ENCOUNTER 2023-11-20 12:12 | Outpatient (CLI) | payer OTHER, SELFPAY ==
[2023-11-20 13:46] LABS: Alanine Aminotransferase 33 U/L (12-78); Albumin Level 3.7 g/dl (3.5-5.0); Albumin/Globulin Ratio 1.3 (1.1-1.8); Alkaline Phosphatase 77 U/L (38-126); Anion Gap 11.5 mEq/L (5-15); Aspartate Amino Transferase 26 U/L (14-36); Bilirubin,Total 0.3 mg/dl (0.2-1.3); Blood Urea Nitrogen 9 mg/dl (7-17); Calcium 9.1 mg/dl (8.4-10.2); Carbon Dioxide 29 mmol/L (22.0-30.0); Chloride 103 mmol/L (98-107); Estimated Glomerular Filt Rate 110 ml/min (>60); GFR (African American) 133 ML/MIN (>60); Globulin 2.8 g/dL (1.3-3.2); Glucose 185 mg/dl (74-100); Potassium 4.5 mmoL/L (3.5-5.1); Sodium 139 mmol/L (136-145); Total Protein,Serum 6.5 g/dl (6.3-8.2)
[2023-11-25 19:22] LABS: GAD-65 <5.0 U/mL (0.0-5.0)
[2023-11-27 20:12] LABS: C-Telopeptide Serum 101 pg/mL (.)
[2023-12-09 08:12] LABS: Miscellaneous Test SCANNED IMAGE
== END 2023-11-20 23:59 | disposition home or self-care (01) ==
LOC: LAB 12:14
PROVIDERS: PCP Student in an Organized Health Care Education/Training Program; Visit Provider Nurse Practitioner Family
DX: E11.69 Type 2 diabetes mellitus with other specified complication (principal); Z79.4 Long term (current) use of insulin; Z79.84 Long term (current) use of oral hypoglycemic drugs
CPT/HCPCS: 36415; 80053; 82523; 83519

== ENCOUNTER 2023-12-14 09:50 | Outpatient (CLI) | payer OTHER, SELFPAY ==
[2023-12-14 11:48] LABS: Chloride 103 mmol/L (98-107); Potassium 4.4 mmoL/L (3.5-5.1); Sodium 137 mmol/L (136-145)
[2023-12-14 11:51] LABS: Alanine Aminotransferase 29 U/L (12-78); Albumin Level 3.9 g/dl (3.5-5.0); Albumin/Globulin Ratio 1.3 (1.1-1.8); Alkaline Phosphatase 79 U/L (38-126); Anion Gap 12.4 mEq/L (5-15); Aspartate Amino Transferase 25 U/L (14-36); Bilirubin,Total 0.3 mg/dl (0.2-1.3); Blood Urea Nitrogen 10 mg/dl (7-17); Carbon Dioxide 26 mmol/L (22.0-30.0); Estimated Glomerular Filt Rate 110 ml/min (>60); GFR (African American) 133 ML/MIN (>60); Globulin 2.9 g/dL (1.3-3.2); Total Protein,Serum 6.8 g/dl (6.3-8.2)
[2023-12-14 11:52] LABS: Calcium 9.1 mg/dl (8.4-10.2); Glucose 190 mg/dl (74-100)
[2023-12-15 11:14] LABS: C-Peptide 7.8 ng/mL (1.1-4.4)
== END 2023-12-14 23:59 | disposition home or self-care (01) ==
LOC: LAB 09:52
PROVIDERS: PCP Student in an Organized Health Care Education/Training Program; Visit Provider Nurse Practitioner Family
DX: E11.69 Type 2 diabetes mellitus with other specified complication (principal); Z79.84 Long term (current) use of oral hypoglycemic drugs
CPT/HCPCS: 36415; 80053; 84681

== ENCOUNTER 2024-03-14 11:29 | Outpatient (CLI) | payer OTHER, SELFPAY ==
[2024-03-14 18:36] LABS: Adenovirus,PCR Not Detected (NotDetected); Bordetella Pertussis Not Detected (NotDetected); Chlamydophila Pneumoniae, PCR Not Detected (NotDetected); Coronavirus 19, PCR Not Detected (NotDetected); Coronavirus 229E Not Detected (NotDetected); Coronavirus NL63 Not Detected (NotDetected); Coronavirus OC43 Not Detected (NotDetected); Coronovirus HKU1,PCR Not Detected (NotDetected); Human Metapneumovirus Not Detected (NotDetected); Influenza A, PCR Not Detected (NotDetected); Influenza AH1, 2009 Not Detected (NotDetected); Influenza AH1, PCR Not Detected (NotDetected); Influenza AH3,PCR Not Detected (NotDetected); Influenza B, PCR Not Detected (NotDetected); Mycoplasma Pneumoniae, PCR Not Detected (NotDetected); Parainfluenza 1, PCR Not Detected (NotDetected); Parainfluenza 2, PCR Not Detected (NotDetected); Parainfluenza 3, PCR Not Detected (NotDetected); Parainfluenza 4, PCR Not Detected (NotDetected); Respiratory Syncytial Virus Not Detected (NotDetected); Rhinovirus/Enterovirus Not Detected (NotDetected)
== END 2024-03-14 23:59 | disposition home or self-care (01) ==
LOC: LAB.DROPOF 03-15 11:11
PROVIDERS: PCP Student in an Organized Health Care Education/Training Program; Visit Provider Student in an Organized Health Care Education/Training Program
DX: J06.9 Acute upper respiratory infection, unspecified (principal); Z72.0 Tobacco use
CPT/HCPCS: 87265; 87486; 87581; 87632; 87635

== ENCOUNTER 2024-03-29 08:50 | Outpatient (CLI) | payer OTHER, SELFPAY ==
--- NOTE | 2024-03-29 09:08 | XR_ITS ---
FINAL REPORT TECHNIQUE: Chest PA & Lateral CLINICAL HISTORY: Nonspecific cough, chest congestion COMPARISON: 12/18/2022 FINDINGS: 2 views of the chest were performed. The heart size is normal. The mediastinum is within normal limits. There is no acute cardiopulmonary process. There are no pleural effusions. There is no pneumothorax. The bony thorax appears intact. IMPRESSION: No acute cardiopulmonary process. Reviewed, Interpreted and Dictated by Devon Myers MD Transcribed by Mercedes Jacques Authenticated and . [facility]
[2024-03-29 09:24] LABS: Creatinine,Urine Random 49 mg/dL (Not Estab.); Microalbumin < 6.000 mg/L (0-16.7)
[2024-03-29 10:33] LABS: Chol/HDL Ratio 3.7 (1-3.5); Cholesterol 116 mg/dl (140-200); HDL Cholesterol 31 mg/dl (40-60); Triglycerides 226 mg/dl (30-150); VLDL Cholesterol 45 mg/dL (0-40)
[2024-03-29 10:44] LABS: Direct LDL Cholesterol 58.47 mg/dL (100-129)
[2024-03-29 10:50] LABS: Free T4 (Free Thyroxine) 1.02 ng/dl (0.78-2.19)
[2024-03-29 11:24] LABS: Vitamin B12 719 pg/mL (239-931)
== END 2024-03-29 23:59 | disposition home or self-care (01) ==
LOC: RAD 08:53
PROVIDERS: PCP Student in an Organized Health Care Education/Training Program; Visit Provider Nurse Practitioner Family
DX: R05.9 Cough, unspecified (principal); R09.89 Other specified symptoms and signs involving the circulatory and respiratory systems; J02.9 Acute pharyngitis, unspecified
CPT/HCPCS: 36415; 71046; 80061; 82043; 82570; 82607; 84439; 84443; 87070

== ENCOUNTER 2024-10-18 09:39 | Outpatient (CLI) | payer OTHER, SELFPAY ==
[2024-10-18 10:00] LABS: Basophils # 0.1 K/mm3 (0-0.2); Basophils % 0.6 % (0.1-2.0); Eosinophils # 0.1 Kmm3 (0.0-0.4); Eosinophils % 1.6 % (0.1-12.0); Lymphocytes # 2.5 K/mm3 (0.7-4.5); Lymphocytes % 27.5 % (10-50); Mean Corpuscular HGB Conc 32.5 g/dL (31.8-35.4); Mean Corpuscular Hemoglobin 28.4 pg (27.0-31.2); Mean Corpuscular Volume 87.3 fl (81-99); Mean Platelet Volume 8.4 fl (7.4-10.4); Monocytes # 0.4 K/mm3 (0.1-1.0); Monocytes % 4.9 % (1.7-9.3); Neutrophils # 5.8 K/mm3 (1.8-7.8); Neutrophils % 64.7 % (37.0-80.0); Nucleated Red Blood Cells # 0 10^3/uL; Nucleated Red Blood Cells % 0 %; Platelet Count 360 K/mm3 (142-424); Red Blood Count 4.58 M/mm3 (4.20-5.40); Red Cell Distribution Width 13.2 % (11.5-17.5); Red Cell Distribution Width-SD 41.7 fL
[2024-10-18 10:12] LABS: Creatinine,Urine Random 91 mg/dL (Not Estab.)
[2024-10-18 10:14] LABS: Microalbumin/Creatinine Ratio 25.3
[2024-10-18 10:33] LABS: Alanine Aminotransferase 31 U/L (12-78); Albumin Level 3.7 g/dl (3.5-5.0); Albumin/Globulin Ratio 1.2 (1.1-1.8); Alkaline Phosphatase 78 U/L (38-126); Anion Gap 7.5 mEq/L (5-15); Aspartate Amino Transferase 24 U/L (14-36); Bilirubin,Total 0.3 mg/dl (0.2-1.3); Blood Urea Nitrogen 8 mg/dl (7-17); Calcium 9.2 mg/dl (8.4-10.2); Carbon Dioxide 30 mmol/L (22.0-30.0); Chloride 106 mmol/L (98-107); Chol/HDL Ratio 3.5 (1-3.5); Cholesterol 118 mg/dl (140-200); Estimated Glomerular Filt Rate 110 ml/min (>60); GFR (African American) 133 ML/MIN (>60); Globulin 3.2 g/dL (1.3-3.2); Glucose 119 mg/dl (74-100); HDL Cholesterol 34 mg/dl (40-60); Potassium 4.5 mmoL/L (3.5-5.1); Sodium 139 mmol/L (136-145); Total Protein,Serum 6.9 g/dl (6.3-8.2); Triglycerides 192 mg/dl (30-150); VLDL Cholesterol 38 mg/dL (0-40)
[2024-10-18 10:44] LABS: Direct LDL Cholesterol 58.67 mg/dL (100-129)
[2024-10-19 12:32] LABS: Anti-Centromere B Antibodies <0.2 AI (0.0-0.9); Anti-DNA (DS) Ab Qn <1 IU/mL (0-9); Anti-Jo-1 <0.2 AI (0.0-0.9); Anti-Smith Antibody <0.2 AI (0.0-0.9); Antichromatin Antibodies <0.2 AI (0.0-0.9); Antiscleroderma-70 Antibodies <0.2 AI (0.0-0.9); RNP Antibodies 0.2 AI (0.0-0.9); Sjogren's Anti-SS-A <0.2 AI (0.0-0.9); Sjogren's Anti-SS-B 0.3 AI (0.0-0.9)
== END 2024-10-18 23:59 | disposition home or self-care (01) ==
LOC: LAB 09:41
PROVIDERS: PCP Internal Medicine; Visit Provider Internal Medicine
DX: Z00.00 Encounter for general adult medical examination without abnormal findings (principal); E11.9 Type 2 diabetes mellitus without complications; R53.83 Other fatigue; Z13.220 Encounter for screening for lipoid disorders
CPT/HCPCS: 36415; 80053; 80061; 82043; 82570; 83036; 85025; 86225; 86235